=== PATIENT | male | born 1970 | race Caucasian/White ===

== ENCOUNTER 2020-11-12 15:57 | Inpatient (IN) | payer OTHER ==
[~2020-11-12] VITALS: Ht 180.3 cm; Wt 87.7 kg
--- NOTE | 2020-11-12 16:29 | NUR ---
Labs drawn, sent to lab Hep-Lock started
--- NOTE | 2020-11-12 16:29 | NUR ---
50-year-old male patient who presents to the ER with a chief complaint of abdominal pain x2 days The patient denies fever or chills, no recent travel
[2020-11-12] MEDS ORDERED: KETOROLAC TROMETHAMINE 15 MG/ML VIAL ONE (16:45)
[2020-11-12] MEDS ORDERED: ONDANSETRON HCL/PF 4 MG/2 ML VIAL ONE (16:45)
[2020-11-12 16:50] LABS: BASOPHILS % (AUTO) 0.1 % (0.0-2.0); EOSINOPHILS % (AUTO) 0.3 % (0.0-6.0); HEMATOCRIT 46 % (39-51); HEMOGLOBIN 15.6 g/dL (13.5-17.5); LYMPHOCYTES % (AUTO) 6.5 % (20.0-44.0); MEAN CORPUSCULAR HGB CONC 34 g/dl (31.0-36.0); MEAN CORPUSCULAR VOLUME 84 fL (80-96); MONOCYTES # (AUTO) 1.2 /CMM (0.1-1.30); MONOCYTES % (AUTO) 7.6 % (2.0-12.0); NEUTROPHILS % (AUTO) 85.5 % (43.0-81.0); PLATELET COUNT (AUTO) 261 /CMM (150-450); WHITE BLOOD COUNT (AUTO) 15.2 K/uL (4.3-11.0)
--- NOTE | 2020-11-12 16:54 | NUR ---
FLUIDS AND ANTI EMETICS GIVEN ORDERED
[2020-11-12] MEDS ORDERED: IV NS 0.9% 1,000 ML BAG IV ONE ×2 (17:00→18:00)
[2020-11-12] MEDS ORDERED: ONDANSETRON HCL/PF 4 MG/2 ML VIAL IVP ONE (17:00)
[2020-11-12] MEDS ORDERED: KETOROLAC TROMETHAMINE INJ 30 MG/ML VIAL IV ONE (17:00)
[2020-11-12 17:01] LABS: ALBUMIN 4.1 g/dL (3.4-5.0); BILIRUBIN,DIRECT 0.1 mg/dL (0.0-0.2); BILIRUBIN,TOTAL 0.6 mg/dL (0.2-1.0); CALCIUM, SERUM 9.2 mg/dL (8.5-10.1); TOTAL PROTEIN, SERUM 7.8 g/dL (6.4-8.2)
[2020-11-12] MEDS ORDERED: PIPERACILLIN /TAZOBACTAM 3.375 G in IV D5W 50 ML IV ONE (18:00)
--- NOTE | 2020-11-12 18:03 | NUR ---
CALLED OFFICE OF DR EDMONDS WOMEN SPECIALIST PAGED
[2020-11-12] MEDS ORDERED: ALBU18HF2 IH (18:19)
[2020-11-12 18:42] LABS: BILIRUBIN,URINE Negative (NEGATIVE); COLOR,URINE YELLOW (YELLOW); LEUKOCYTE ESTERASE ,URINE Negative (NEGATIVE); NITRITE, URINE Negative (NEGATIVE); PROTEIN,URINE 100 mg/dl (NEGATIVE); UGLUCOSE Negative (NEGATIVE); UROBILINOGEN,URINE 0.2 EU/dL (0.2)
[2020-11-12 18:49] LABS: PH,URINE >8.5 (5.0-8.0)
[2020-11-12 19:06] LABS: BACTERIA,URINE Rare /HPF (None Seen); RBC,URINE NONE SEEN /HPF (0-2); SQUAMOUS EPITHELIAL CELL,UR Few /HPF (None Seen); WBC,URINE NONE SEEN /HPF (0-3)
--- NOTE | 2020-11-12 19:10 | NUR ---
CALLED [facility], PAGED THAD DESHPANDE
--- NOTE | 2020-11-12 19:30 | NUR ---
THAD PAYROLL REPRESENTATIVE SPEAKING WITH CHERISE RAYGOZA
--- NOTE | 2020-11-12 19:46 | NUR ---
CALLED - RUBY NOTIFIED OF ADMISSION [phone]
[2020-11-12] MEDS ORDERED: IV NS 0.9% 1,000 ML IV PRN (20:00)
[2020-11-12] MEDS ORDERED: ZOLPIDEM TARTRATE 5 MG TABLET PO PRN (20:00)
[2020-11-12] MEDS ORDERED: ACETAMINOPHEN 325 MG TABLET PO PRN (20:00)
[2020-11-12] MEDS ORDERED: MAGNESIUM HYDROXIDE 30 ML UDC PO PRN (20:00)
--- NOTE | 2020-11-12 22:01 | NUR ---
ATTEMPTED TO PAGE THAD REGARDING A PT. WILL CALL US BACK.
[2020-11-12] MEDS: PIPERACILLIN /TAZOBACTAM 3.375 G in IV D5W 100 ML IV SCH (23:09)
--- NOTE | 2020-11-12 23:15 | NUR ---
JEAN GRADY AT BEDSIDE SPEAKING TO PT REGARDING PLAN OF CARE. ORDERED PRN BREATHING TREATMENT.
[2020-11-12] MEDS ORDERED: IPRATROPIUM NEB FS 0.5 MG/2.5 ML AMPUL.NEB ONE (23:24)
[2020-11-12] MEDS ORDERED: ALBUTEROL FS 2.5 MG/3 ML VIAL.NEB ONE (23:24)
--- NOTE | 2020-11-12 23:24 | NUR ---
CALLED RT REGARDING BREATHING TREATMENT
[2020-11-12] MEDS: ALBUTEROL HALF STRENGTH 1.25 MG/3 ML VIAL.NEB NEB PRN (23:26)
[2020-11-12] MEDS: IPRATROPIUM NEB FS 0.5 MG/2.5 ML AMPUL.NEB NEB PRN (23:26)
--- NOTE | 2020-11-12 23:44 | NUR ---
M/S [id number]
--- NOTE | 2020-11-13 00:40 | NUR ---
REPORT GIVEN TO BRI RAI FOR ROSALINA
--- NOTE | 2020-11-13 01:00 | NUR ---
RN ADMITTING NOTES PATIENT RECEIVED FROM ER VIA [facility]. PATIENT A/O X 4, STABLE ON RA, ABLE TO AMBULATE. NO SIGNS OF ACUTE DISTRESS. COMPLAINTS OF RLQ ABDOMINAL PAIN . IV LOCATE ON R AC #18 RUNNING NS @ 75 ML/HR. VITALS TAKEN. SKIN ASSESSMENT DONE. BELONGINGS ACCOUNTED FOR. PATIENT ORIENTED TO ROOM AND STAFF. SAFETY PRECAUTIONS IN PLACE WITH BED IN LOWEST POSITION, CALL LIGHT WITHIN REACH, BREAKS ON, SIDE RAILS UP. PATIENT REMAINING NPO THROUGHOUT THE NIGHT. WAITING FOR GI AND SURGERY CONSULT.
[2020-11-13] MEDS: MORPHINE SULFATE INJ 2 MG/ML DISP.SYRIN IV PRN ×4 (01:32→09:28)
[2020-11-13] MEDS: ONDANSETRON HCL/PF 4 MG/2 ML VIAL IVP PRN ×3 (01:35→22:11)
[2020-11-13 01:59] VITALS: BP 118/66
[2020-11-13] MEDS ORDERED: PIPERACILLIN /TAZOBACTAM 3.375 G VIAL IV ONE (05:03)
[2020-11-13] MEDS: PIPERACILLIN /TAZOBACTAM 3.375 G in IV D5W 100 ML IV SCH ×3 (05:14→20:14)
--- NOTE | 2020-11-13 05:52 | NUR ---
ONLY ZOSYN 3.375 IN 50 ML OF D5W AVAILABLE ON FLOOR, SPOKE WITH PHARMACY IF ABLE TO ADMINISTER IN REPLACE OF THE ORDERED. CHANGED RATE TO 12.5 ML/HR.
[2020-11-13 06:32] LABS: BASOPHILS % (AUTO) 0.3 % (0.0-2.0); EOSINOPHILS % (AUTO) 0.3 % (0.0-6.0); HEMATOCRIT 39 % (39-51); HEMOGLOBIN 12.9 g/dL (13.5-17.5); LYMPHOCYTES # (AUTO) 1.3 /CMM (0.8-4.8); LYMPHOCYTES % (AUTO) 10.2 % (20.0-44.0); MEAN CORPUSCULAR HGB CONC 33 g/dl (31.0-36.0); MEAN CORPUSCULAR VOLUME 84 fL (80-96); MONOCYTES # (AUTO) 0.8 /CMM (0.1-1.30); MONOCYTES % (AUTO) 6.3 % (2.0-12.0); NEUTROPHILS # (AUTO) 10.7 /CMM (1.8-8.9); NEUTROPHILS % (AUTO) 82.9 % (43.0-81.0); PLATELET COUNT (AUTO) 203 /CMM (150-450); RED BLOOD CELL COUNT(AUTO) 4.65 MIL/uL (4.5-6.0); WHITE BLOOD COUNT (AUTO) 12.8 K/uL (4.3-11.0)
--- NOTE | 2020-11-13 06:48 | NUR ---
RN CLOSING NOTES PATIENT IN BED RESTING, A/O X 4. STABLE ON RA WITH BREATHING EVEN AND UNLABORED, NO SOB NOTED. NO SIGNS OF ACUTE DISTRESS. SOME COMPLAINTS OF PAIN AND DISCOMFORT. IV LOCATED ON R AC #18 RUNNING NS @ 75 ML/HR. PATIENT REMAINED NPO THROUGHOUT THE NIGHT AWAITING POSSIBLE SURGERY. SAFETY PRECAUTIONS IN PLACE WITH BED IN LOWEST POSITION, CALL LIGHT WITHIN REACH, BREAKS ON, SIDE RAILS UP. ALL NEEDS ATTENDED TO. WILL ENDORSE TO ONCOMING SHIFT ABOUT ROSALINA.
[2020-11-13 07:08] LABS: CALCIUM, SERUM 8.3 mg/dL (8.5-10.1); CREATININE 0.9 mg/dL (0.6-1.3); MAGNESIUM 2.3 mg/dL (1.8-2.4); PHOSPHORUS 3.1 mg/dL (2.5-4.9); POTASSIUM 4.1 mmol/L (3.5-5.1)
--- NOTE | 2020-11-13 07:30 | NUR ---
MS/RN OPENING NOTE Received patient resting in bed, A&O x 4. No complaints of pain and discomfort at this time. Breathing even and non-labored on RA. No cardiac distress noted. IV access noted on RAC #18g, patent and intact, and flushing well. Bed locked to its lowest position, side rails x 2 up, call light in hand. Will continue with current medical management.
[2020-11-13 08:00] VITALS: BP 127/73
--- NOTE | 2020-11-13 08:00 | NUR ---
MS/RN NOTE Patient expresses the need to see and talk to MD regarding plan of care. He stated that he was informed yesterday that he was going to get an emergency operation but was cancelled and never got followed up by surgeon or MD. Notified Dr. Rivera, states to contact Dr. Knowles regarding plan. Spoke with Dr. Knowles, states "I just want to monitor how he is on antibiotics first, because surgical intervention may require colostomy procedure as well. Since his WBC is trending down, we'll do antibiotic treatments first, but keep him NPO." Order carried out, notified patient and Dr. Rivera of orders.
[2020-11-13] MEDS ORDERED: MORPHINE SULFATE INJ 2 MG/ML DISP.SYRIN IV PRN (10:30)
[2020-11-13] MEDS: IPRATROPIUM NEB FS 0.5 MG/2.5 ML AMPUL.NEB NEB PRN (11:27)
[2020-11-13] MEDS: ALBUTEROL HALF STRENGTH 1.25 MG/3 ML VIAL.NEB NEB PRN (11:27)
[2020-11-13] MEDS ORDERED: LIDOCAINE HCL/PF 1% 30 ML SDV ONE (11:43)
[2020-11-13] MEDS ORDERED: LIDOCAINE 0.5%-EPI 1:200,000 50 ML VIAL ONE (11:52)
[2020-11-13] MEDS ORDERED: BUPIVACAINE 0.5 % PF 150 MG/30 ML VIAL ONE (11:59)
--- NOTE | 2020-11-13 12:00 | NUR ---
MS/RN NOTE Called pharmacy to bring in zosyn abx before procedure so that OR can hang it. Pharmacy states they are in the process of making it.
--- NOTE | 2020-11-13 12:21 | NUR ---
MS/RN NOTE Patient picked up by OR nurses for procedure.
--- NOTE | 2020-11-13 12:30 | NUR ---
MS/RN NOTE Followed up on pharmacy again regarding patient's zosyn abx and offered to go down to pick it up, but pharmacist said they'll finish it soon and will deliver bertha. Addendum: 11/13/20 at 1338 by KIMMIE MAYA RN Notified OR.
[2020-11-13] MEDS ORDERED: MIDAZOLAM HCL 2 MG/2ML VIAL ONE (12:43)
[2020-11-13] MEDS ORDERED: HYDROMORPHONE INJ 2 MG/ML DISP.SYRIN ONE (12:43)
[2020-11-13] MEDS ORDERED: ROCURONIUM BROMIDE 50 MG/5 ML ONE ×2 (12:44→13:38)
[2020-11-13] MEDS ORDERED: SUCCINYLCHOLINE CHLORIDE 20 MG/ML VIAL ONE (12:45)
[2020-11-13] MEDS ORDERED: EPINEPHRINE (1:1000) 1 MG/ML AMPUL ONE (13:14)
[2020-11-13] MEDS ORDERED: LIDOCAINE MPF 1%-EPI 1:200,000 30 ML VIAL IJ ONE (13:22)
--- NOTE | 2020-11-13 13:38 | NUR ---
MS/RN NOTE Gave OR patient's IV abx zosyn to administer to patient.
[2020-11-13] MEDS ORDERED: BACITRACIN OPHTH OINT 3.5 GM TUBE ONE (15:02)
[2020-11-13] MEDS: HYDROMORPHONE 1 MG/1 ML DISP.SYRIN IV PRN ×2 (18:09→22:06)
[2020-11-13] MEDS ORDERED: IV LR 1000 ML 1,000 ML IV PRN (18:30)
[2020-11-13 20:00] VITALS: BP 142/58
[2020-11-13] MEDS ORDERED: GABAPENTIN 300 MG CAPSULE PO SCH (21:00)
[2020-11-13] MEDS ORDERED: ACETAMINOPHEN 325 MG TABLET PO SCH (21:00)
[2020-11-13] MEDS ORDERED: IBUPROFEN 400 MG TABLET PO SCH (21:00)
[2020-11-13] MEDS: IBUPROFEN 400 MG TABLET PO SCH (21:09)
[2020-11-13] MEDS: ACETAMINOPHEN 325 MG TABLET PO SCH (21:18)
[2020-11-13] MEDS: GABAPENTIN 300 MG CAPSULE PO SCH (21:18)
--- NOTE | 2020-11-13 22:18 | NUR ---
RN NOTES COMPLAINED OF ABDOMINAL PAIN AND NAUSEA, DILAUDI 1 MG IV GIVEN S ORDERED, AND ZOFRAN 4 MG IV GIVEN FOR NAUSEA
--- NOTE | 2020-11-13 23:27 | NUR ---
MS/RN NOTE Patient resting in bed, A&O x 4. No complaints of pain and discomfort at this time. Breathing even and non-labored on RA. No cardiac distress noted. IV access noted on RAC #18g, patent and intact, and flushing well. Colostomy bag in place. Abdominal incision dressing remains clean dry and intact. Fall precautions maintained. Endorsed to Sandi RAI for ROSALINA
[2020-11-14] MEDS ORDERED: MENTHOL/CETYLPYRD (CEPACOL) 1 LOZ LOZENGE PO PRN (00:30)
[2020-11-14] MEDS: PIPERACILLIN /TAZOBACTAM 3.375 G in IV D5W 100 ML IV SCH ×3 (04:38→20:06)
[2020-11-14 06:34] LABS: BASOPHILS # (AUTO) 0.1 /CMM (0.0-0.2); BASOPHILS % (AUTO) 0.3 % (0.0-2.0); HEMATOCRIT 38 % (39-51); HEMOGLOBIN 12.7 g/dL (13.5-17.5); LYMPHOCYTES # (AUTO) 0.8 /CMM (0.8-4.8); LYMPHOCYTES % (AUTO) 5.3 % (20.0-44.0); MEAN CORPUSCULAR HGB CONC 34 g/dl (31.0-36.0); MEAN CORPUSCULAR VOLUME 84 fL (80-96); MONOCYTES # (AUTO) 0.8 /CMM (0.1-1.30); MONOCYTES % (AUTO) 4.8 % (2.0-12.0); NEUTROPHILS # (AUTO) 14.5 /CMM (1.8-8.9); NEUTROPHILS % (AUTO) 89.6 % (43.0-81.0); PLATELET COUNT (AUTO) 187 /CMM (150-450); RED BLOOD CELL COUNT(AUTO) 4.51 MIL/uL (4.5-6.0); WHITE BLOOD COUNT (AUTO) 16.2 K/uL (4.3-11.0)
[2020-11-14 07:03] LABS: ALBUMIN 2.6 g/dL (3.4-5.0); BILIRUBIN,TOTAL 0.4 mg/dL (0.2-1.0); CALCIUM, SERUM 8.7 mg/dL (8.5-10.1); MAGNESIUM 2.4 mg/dL (1.8-2.4); PHOSPHORUS 2.9 mg/dL (2.5-4.9); POTASSIUM 4.1 mmol/L (3.5-5.1); TOTAL PROTEIN, SERUM 6.1 g/dL (6.4-8.2)
[2020-11-14] MEDS: ACETAMINOPHEN 325 MG TABLET PO SCH ×3 (07:18→21:11)
[2020-11-14] MEDS: GABAPENTIN 300 MG CAPSULE PO SCH ×3 (07:18→21:11)
[2020-11-14] MEDS: IBUPROFEN 400 MG TABLET PO SCH ×3 (07:19→21:11)
[2020-11-14] MEDS: PANTOPRAZOLE 40 MG TABLET.DR PO SCH (07:19)
--- NOTE | 2020-11-14 07:30 | NUR ---
MS/RN OPENING NOTES RECEIVED PT IN BED. A/O X4. AFEBRILE. IN NO APPARENT DISTRESS. BREATHING EVEN AND UNLABORED. ON ROOM AIR, TOLERATING WELL. R ANTECUBITAL #18 G, L FOREARM #18 G, INTACT, LR RUNNING AT 150 ML/HR. S/P EX LAP BOWEL RESECTION AND COLOSTOMY. FLATUS PRESENT. WITH VACA CATH, DRAINING WELL. SAFETY MEASURES APPLIED. BED IN LOWEST POSITION. CALL LIGHT WITHIN REACH. WILL CONTINUE TO MONITOR.
[2020-11-14 08:00] VITALS: BP 109/76
[2020-11-14] MEDS: HYDROMORPHONE 1 MG/1 ML DISP.SYRIN IV PRN ×3 (08:18→18:27)
--- NOTE | 2020-11-14 08:18 | NUR ---
PATIENT IN PAIN. DUE TO S/P SURGERY. PAIN 06/24. DILAUDID PRN GIVEN.
[2020-11-14] MEDS: IV LR 1000 ML 1,000 ML IV PRN (14:02)
[2020-11-14 16:00] VITALS: BP 125/77
--- NOTE | 2020-11-14 18:35 | NUR ---
MS/RN CLOSING NOTES PATIENT IN BED. AFEBRILE. IN SO MUCH PAIN. RATES PAIN 20/10. DILAUDID PRN GIVEN. NO SOB NOTED. WITH R ANTECUBITAL #18 G. L FA # 18 G. INTACT, LR RUNNING @ 100L/HR. ON VACA CATH, DRAINING WELL. COLOSTOMY, CLEAN AND DRY. SAFETY MEASURES APPLIED. BED IN LOWEST POSITION, LOCKED. SIDE RAILS UP X2. LIGHTS OFF. CALL LIGHT WITHIN REACH. WILL ENDORSE TO CODING MANAGER FOR ROSALINA.
--- NOTE | 2020-11-14 19:05 | NUR ---
RN MS OPENING NOTES RECEIVED PATIENT IN BED AWAKE ALERT AND ORIENTED X4, RESPIRATIONS EVEN AND UNLABORED WITH EQUAL RISE AND FALL OF CHEST, AT THIS TIME APPEARS COMFORTABLE NO FACIAL GRIMACING PRESENT, WHEN ASKED STATES HE FEELS BLOATED, LEFT LOWER QUAD COLOSTOMY BAG INTACT, VACA CATHETER INTACT AND DRAINING URINE YELLOW, IV SITE TO RIGHT AC #18G AND LEFT FA #18G INTACT AND PATENT, IVF RUNNING ORDERED, NO REDNESS, NO INFILTRATION. ORIENTED TO STAFF AND CALL LIGHT AND KEPT WITHIN REACH.
[2020-11-14 20:00] VITALS: BP 136/73
--- NOTE | 2020-11-14 20:48 | NUR ---
RN MS NOTES PATIENT EXPRESS HE FEELS LIKE HE HASNT PASSED GAS AND FEELS BLOATED AND JUST WANTS TO PASS GAS AND HAS PAIN TO ABDOMEN AREA, HOSPITALIST JEAN MADE AWARE AND WILL ORDER SIMETHICONE. OFFERED PAIN MEDICATION PRN TO PT HE REFUSED AT THIS TIME. WILL CONTINUE TO MONITOR, VS ASSESSED WNL. 136/73,71,18,97.9,98% RA.
[2020-11-14] MEDS: SIMETHICONE 80 MG TAB.CHEW PO SCH (21:11)
--- NOTE | 2020-11-14 21:27 | NUR ---
RN MS NOTES NORIS PENA AWARE PT IS COMPLAINING OF PAIN AND FEELS LIKE ITS THE WORST PAIN STATES 20/10 . NORIS PENA AWARE COLOSTOMY BAG HAS MINIMAL BLOOD, VS WNL. PER JEAN GIVE SIMETHICONE AND SHE WILL COME ASSESS THE PT, PT MADE AWARE PAIN MEDICATION OFFERED, PT REFUSED.
[2020-11-14] MEDS ORDERED: GABAPENTIN 300 MG CAPSULE PO SCH (22:00)
--- NOTE | 2020-11-14 23:16 | NUR ---
RN MS NOTES SEEN AND ASSESSED BY JEAN HOSPITALIST, WITH NEW ORDER FOR LABS AND CT OF THE ABDOMEN AND PELVIS WO, LAB AND RADIOLOGY CALLED.
--- NOTE | 2020-11-14 23:28 | NUR ---
RN MS NOTES PATIENT LEFT WITH RADIOLOGY STAFF IN STABLE CONDITION.
[2020-11-14 23:34] LABS: BASOPHILS % (AUTO) 0.2 % (0.0-2.0); EOSINOPHILS % (AUTO) 0.7 % (0.0-6.0); HEMATOCRIT 44 % (39-51); HEMOGLOBIN 14.5 g/dL (13.5-17.5); LYMPHOCYTES # (AUTO) 0.9 /CMM (0.8-4.8); MEAN CORPUSCULAR HGB CONC 33 g/dl (31.0-36.0); MEAN CORPUSCULAR VOLUME 84 fL (80-96); MONOCYTES # (AUTO) 0.7 /CMM (0.1-1.30); MONOCYTES % (AUTO) 4.9 % (2.0-12.0); NEUTROPHILS # (AUTO) 12.8 /CMM (1.8-8.9); NEUTROPHILS % (AUTO) 88.2 % (43.0-81.0); PLATELET COUNT (AUTO) 235 /CMM (150-450); RED BLOOD CELL COUNT(AUTO) 5.24 MIL/uL (4.5-6.0); WHITE BLOOD COUNT (AUTO) 14.5 K/uL (4.3-11.0)
[2020-11-14 23:40] LABS: CALCIUM, SERUM 8.7 mg/dL (8.5-10.1); CREATININE 1.1 mg/dL (0.6-1.3); POTASSIUM 4.2 mmol/L (3.5-5.1)
--- NOTE | 2020-11-14 23:40 | NUR ---
RN MS NOTE PT C/O NAUSEA ZOFRAN PRN OFFERED AND GIVEN WILL CONTINUE TO MONITOR.
--- NOTE | 2020-11-14 23:40 | NUR ---
RN MS NOTES PATIENT BACK ON UNIT FROM CT IN STABLE CONDITION.
[2020-11-14] MEDS: ONDANSETRON HCL/PF 4 MG/2 ML VIAL IVP PRN (23:43)
[2020-11-14 23:46] LABS: ALBUMIN 2.9 g/dL (3.4-5.0); BILIRUBIN,TOTAL 0.4 mg/dL (0.2-1.0); MAGNESIUM 2.2 mg/dL (1.8-2.4); PHOSPHORUS 2.7 mg/dL (2.5-4.9); TOTAL PROTEIN, SERUM 6.9 g/dL (6.4-8.2)
--- NOTE | 2020-11-15 00:32 | NUR ---
RN MS NOTES RECEIVED CALL FROM DR NIXON RECEIVED ORDERS TO INSERT NGT LOW INTERMITTENT SUCTION, NPO ICE CHIPS OKAY, DILAUDID 2MG ONCE.
[2020-11-15] MEDS ORDERED: HYDROMORPHONE INJ 2 MG/ML DISP.SYRIN IV ONE (01:00)
[2020-11-15] MEDS ORDERED: MEPERIDINE HCL/PF 50 MG/ML DISP.SYRIN IM PRN (01:00)
--- NOTE | 2020-11-15 01:09 | NUR ---
RN MS NOTES CHEST XRAY PLACED FOR NGT INSERTION PLACEMENT.
--- NOTE | 2020-11-15 01:10 | NUR ---
RN MS NOTES ER CALLED AND GROUP ACCOUNT DIRECTOR CALLED, DEMEROL IS NOT AVAILABLE NOT IN FACILITY WILL CALL DR NIXON TO NOTIFY HIM.
--- NOTE | 2020-11-15 01:30 | NUR ---
rn ms notes demerol discontinued not available in facility dr umanzor aware. per dr dial pat can have 1mg dilaudid now, and in 2-3 hours can have dilaudid 3mg q3 hrs. offered dialaudid 1mg to pt he states he will wait at this time. dr dial made aware of ngt 900cc output brown in color.
[2020-11-15] MEDS: PIPERACILLIN /TAZOBACTAM 3.375 G in IV D5W 100 ML IV SCH ×3 (04:36→20:26)
[2020-11-15] MEDS: ACETAMINOPHEN 325 MG TABLET PO SCH ×3 (04:37→22:00)
[2020-11-15] MEDS: GABAPENTIN 300 MG CAPSULE PO SCH ×3 (04:37→22:00)
[2020-11-15] MEDS: IBUPROFEN 400 MG TABLET PO SCH ×3 (04:37→22:00)
[2020-11-15] MEDS: HYDROMORPHONE 1 MG/1 ML DISP.SYRIN IV PRN (06:09)
[2020-11-15 07:08] LABS: BASOPHILS # (AUTO) 0.1 /CMM (0.0-0.2); BASOPHILS % (AUTO) 0.5 % (0.0-2.0); EOSINOPHILS % (AUTO) 0.9 % (0.0-6.0); HEMATOCRIT 41 % (39-51); HEMOGLOBIN 13.7 g/dL (13.5-17.5); LYMPHOCYTES # (AUTO) 1.1 /CMM (0.8-4.8); LYMPHOCYTES % (AUTO) 8.8 % (20.0-44.0); MEAN CORPUSCULAR HGB CONC 34 g/dl (31.0-36.0); MEAN CORPUSCULAR VOLUME 83 fL (80-96); MONOCYTES # (AUTO) 0.6 /CMM (0.1-1.30); NEUTROPHILS # (AUTO) 10.9 /CMM (1.8-8.9); NEUTROPHILS % (AUTO) 84.8 % (43.0-81.0); PLATELET COUNT (AUTO) 232 /CMM (150-450); RED BLOOD CELL COUNT(AUTO) 4.87 MIL/uL (4.5-6.0); WHITE BLOOD COUNT (AUTO) 12.9 K/uL (4.3-11.0)
--- NOTE | 2020-11-15 07:10 | NUR ---
RN MS OPENING NOTES PATIENT IN BED AWAKE ALERT AND ORIENTED X4, RESPIRATIONS EVEN AND UNLABORED WITH EQUAL RISE AND FALL OF CHEST, AT THIS TIME APPEARS COMFORTABLE NO FACIAL GRIMACING PRESENT STATES HE FEELS MUCH BETTER NGT TO LEFT NARE AT 65 CM, TOTAL OUTPUT WAS 1OOOML BROWN/YELLOW IN COLOR, LEFT LOWER QUAD COLOSTOMY BAG INTACT HAVE NOT NOTICED GAS IN BAG YET, STOMA LOOKS RED IN COLOR, VACA CATHETER INTACT AND DRAINING URINE YELLOW 1600 OUT,PT REMAINS NPO, IV SITE TO RIGHT AC #18G AND LEFT FA #18G INTACT AND PATENT, IVF RUNNING ORDERED, NO REDNESS, NO INFILTRATION. ORIENTED TO STAFF AND CALL LIGHT AND KEPT WITHIN REACH. ALL NEEDS WERE MET, NOTICED PT WAS ABLE TO SLEEP A FEW HOURS AFTER DILAUDID ADMINISTRATION AND NGT SUCTION AT LOW INTERMITTENT. LINENS CHANGED WILL CONTINUE TO MONITOR AND ENDORSE TO NEXT SHIFT, VS REMAINED STABLE THROUGHOUT THE SHIFT. Addendum: 11/15/20 at 0803 by SID HENRIQUEZ RN CLARIFICATION RN CLOSING NOTES
--- NOTE | 2020-11-15 07:10 | NUR ---
clarification urine output is 800
[2020-11-15 07:23] LABS: CALCIUM, SERUM 8.4 mg/dL (8.5-10.1); CREATININE 0.9 mg/dL (0.6-1.3); MAGNESIUM 2.2 mg/dL (1.8-2.4); PHOSPHORUS 3.4 mg/dL (2.5-4.9); POTASSIUM 3.9 mmol/L (3.5-5.1)
--- NOTE | 2020-11-15 07:26 | NUR ---
MS RN OPENING NOTES RECEIVED PATIENT RESTING IN BED AWAKE, A/OX4. ON RA BREATHING EVEN AND UNLABORED WITH NO S/S OF ACUTE RESPIRATORY DISTRESS NOTED. NO C/O PAIN, C/O ABD DISCOMFORT AND DISTENTION IV TO RAC#18G AND LT FA#18. BOTH PATENT AND INTACT AND FLUSHING WELL. IV TO LFA INFUSING LR @100 ML/HR RUNNING. BED AT LOWEST POSITION AND LOCKED WITH SIDE RAILS UP x2 AND CALL LIGHT WITH IN REACH. ALL SAFETY MEASURES IN PLACE, WILL CONTINUE TO MONITOR PATIENT THROUGH SHIFT.
[2020-11-15 08:00] VITALS: BP 125/80
[2020-11-15] MEDS: SIMETHICONE 80 MG TAB.CHEW PO SCH ×4 (08:22→21:00)
[2020-11-15] MEDS: PANTOPRAZOLE 40 MG TABLET.DR PO SCH (08:22)
--- NOTE | 2020-11-15 10:30 | NUR ---
DR HUSSAIN HALL ALSO GAVE INSTRUCTIONS THAT PT MAY HAVE CHOCOLATE CANDY TO SUCK EVEN IF PT IN ON NPO,AND ADMINISTER DILAUDID 3 MG IV NOW FOR PAIN MGT.
[2020-11-15] MEDS: HYDROMORPHONE INJ 2 MG/ML DISP.SYRIN IV PRN ×2 (11:22→16:55)
--- NOTE | 2020-11-15 14:30 | NUR ---
DR NIXON CALLED AND NOTIFIED OF THE KUB RESULT WITH NO NEW ORDER.
[2020-11-15 16:00] VITALS: BP 123/66
[2020-11-15] MEDS: IV LR 1000 ML 1,000 ML IV PRN (16:50)
--- NOTE | 2020-11-15 19:45 | NUR ---
MS RN OPENING NOTES RECEIVED PATIENT IN BED ALERT AND ORIENTED X 4. VERBALLY RESPONSIVE AND ABLE TO FOLLOW DIRECTIONS. BREATHING REGULAR AND UNLABORED ON ROOM AIR. LEFT FOREARM G18/RIGHT AC G18 IV LINES INTACT AND PATENT, INFUSING WELL. RIGHT NARE NGT PATENT, DRAINING DARK GREEN OUTPUT WITH MODERATE OUTPUT ON SUCTION CANISTER. COMPLAINED OF 3/10 ABDOMINAL PAIN, NON-PHARMACOLOGICAL INTERVENTIONS PROVIDED. BED LOW AND LOCKED ON SEMI FOWLERS POSITION. CALL LIGHT IN REACH. WILL CONTINUE TO MONITOR.
--- NOTE | 2020-11-15 19:46 | NUR ---
PT RESTING IN BED WITH ONGOING NGT CONNECTED TO SUCTION WITH 250 ML OUTPUT.WITH ONGOING IVF OF LR AT 100 ML/HR INFUSING WELL.PT SIGNED ALL THE CONSENTS FOR EXPLOR LAP AND RELEASE/RELIEVE OF SMALL BOWEL OBSTRUCTION,POSSIBLE RESECTION AND ANASTOMOSIS FOR TOMORROW AT 12NN BY DR NIXON. CALL LIGHT PLACED WITHIN REACH.
[2020-11-15 20:00] VITALS: BP_SYST 140; BP_DIAS 77; BP_DIAS 78
--- NOTE | 2020-11-15 23:00 | NUR ---
MS RN NOTES CALLED FOR KUB ORDERS TOMORROW AT 9AM, ORDER NOTED AND CARRIED OUT. PATIENT AWARE.
[2020-11-16] VITALS (9 sets, daily range): BP systolic 112–143; BP diastolic 66–88
--- NOTE | 2020-11-16 | NUR ---
MS RN NOTES ADVISED ON NOTHING BY MOUTH.
[2020-11-16] MEDS: HYDROMORPHONE INJ 2 MG/ML DISP.SYRIN IV PRN ×4 (00:23→21:04)
[2020-11-16] MEDS: PIPERACILLIN /TAZOBACTAM 3.375 G in IV D5W 100 ML IV SCH ×3 (04:30→21:05)
[2020-11-16] MEDS: GABAPENTIN 300 MG CAPSULE PO SCH ×3 (05:12→21:49)
[2020-11-16] MEDS: IBUPROFEN 400 MG TABLET PO SCH ×3 (05:12→21:49)
[2020-11-16] MEDS: ACETAMINOPHEN 325 MG TABLET PO SCH ×3 (05:12→21:49)
[2020-11-16] MEDS: PANTOPRAZOLE 40 MG TABLET.DR PO SCH (06:43)
--- NOTE | 2020-11-16 06:45 | NUR ---
MS RN CLOSING NOTES PATIENT IN BED ALERT AND ORIENTED X 3 FORGETFUL AND ANXIOUS SOMETIMES. AFEBRILE WITH NO S/S OF DISTRESS OBSERVED. LEFT FOREARM G18/RIGHT AC G18 IV LINES INTACT AND PATENT, INFUSING WELL. RIGHT NARE NGT PATENT, DRAINING DARK GREEN WITH 35cc OUTPUT. DENIES PAIN/DISCOMFORT AT THIS TIME. BED LOW AND LOCKED ON SEMI FOWLERS POSITION. CALL LIGHT IN REACH. WILL ENDORSE TO MORNING SHIFT FOR ROSALINA.
--- NOTE | 2020-11-16 07:37 | NUR ---
MS RN OPENING NOTES PT IN BED AWAKE, A/O X3 ABLE TO MAKE NEEDS KNOWN. ON ROOM AIR; TOLERATING WELL WITH NO SOB NOTED; NO ACUTE RESPIRATORY DISTRESS NOTED. NO C/O CARDIAC DISTRESS VOICED AT THIS TIME. IV RAC #18 PATENT AND INTACT. IV ON LFA #18, PATENT AND INTACT. NGT INTACT AND PATENT; TOLERATING WELL. VACA CATHETER INTACT AND PATENT; CLEAR YELLOW URINE DRAINING. COLOSTOMY ON LLQ WITH BLOODY DRAINAGE; KEPT C/D/I. NO C/O PAIN AT THIS TIME. NPO DIET MAINTAINED. SAFETY MEASURES IN PLACE: BED IN LOWEST LOCKED POSITION WITH SR UP X2, BED ALARM ON AND CALL LIGHT W/IN EASY REACH OF PT. WILL CONTINUE TO MONITOR.
--- NOTE | 2020-11-16 08:42 | NUR ---
RN notes Pt c/o of lower abdominal pain 10/10 scale, prn Dilaudid 1.5mg/0.75ml IVP administered at 0839. Will continue to monitor and reassess pt. .
[2020-11-16] MEDS: SIMETHICONE 80 MG TAB.CHEW PO SCH ×4 (08:46→21:00)
[2020-11-16 09:07] LABS: BASOPHILS % (AUTO) 0.3 % (0.0-2.0); EOSINOPHILS % (AUTO) 4.3 % (0.0-6.0); HEMATOCRIT 41 % (39-51); HEMOGLOBIN 13.8 g/dL (13.5-17.5); LYMPHOCYTES # (AUTO) 0.9 /CMM (0.8-4.8); LYMPHOCYTES % (AUTO) 11.5 % (20.0-44.0); MEAN CORPUSCULAR HGB CONC 34 g/dl (31.0-36.0); MEAN CORPUSCULAR VOLUME 84 fL (80-96); MONOCYTES # (AUTO) 0.6 /CMM (0.1-1.30); MONOCYTES % (AUTO) 6.9 % (2.0-12.0); NEUTROPHILS # (AUTO) 6.4 /CMM (1.8-8.9); PLATELET COUNT (AUTO) 298 /CMM (150-450); RED BLOOD CELL COUNT(AUTO) 4.83 MIL/uL (4.5-6.0); WHITE BLOOD COUNT (AUTO) 8.3 K/uL (4.3-11.0)
[2020-11-16 09:41] LABS: ALBUMIN 2.6 g/dL (3.4-5.0); BILIRUBIN,TOTAL 0.4 mg/dL (0.2-1.0); CALCIUM, SERUM 8.6 mg/dL (8.5-10.1); CREATININE 0.9 mg/dL (0.6-1.3); POTASSIUM 3.7 mmol/L (3.5-5.1); TOTAL PROTEIN, SERUM 6.5 g/dL (6.4-8.2)
[2020-11-16] MEDS ORDERED: BUPIVACAINE 0.5 % PF 150 MG/30 ML VIAL ONE (11:33)
[2020-11-16] MEDS ORDERED: LIDOCAINE MPF 1%-EPI 1:200,000 30 ML VIAL IJ ONE (11:33)
[2020-11-16] MEDS ORDERED: HYDROMORPHONE INJ 2 MG/ML DISP.SYRIN ONE ×2 (11:45→15:52)
[2020-11-16] MEDS ORDERED: MIDAZOLAM HCL 2 MG/2ML VIAL ONE (11:46)
[2020-11-16] MEDS ORDERED: ROCURONIUM BROMIDE 50 MG/5 ML ONE ×2 (11:46→13:13)
--- NOTE | 2020-11-16 11:50 | NUR ---
SURGERY RN NOTES SCANNED ZOSYN FOR 1300 TO TAKE THE BAG TO SURGERY. WILL BE ADMINISTRATED IN OR, SEE ANESTHESIOLOGIST NOTES FOR ADMINISTRATION.
--- NOTE | 2020-11-16 12:08 | NUR ---
RN NOTES PT PICKED-UP VIA HIS BED BY Jesika BONILLA AND TRANSPORTER STAFF FOR SURGERY.
[2020-11-16] MEDS ORDERED: CELLULOSE,OXIDIZED 1 EA PACK MC ONE (13:46)
[2020-11-16] MEDS ORDERED: BACITRACIN OPHTH OINT 3.5 GM TUBE ONE (14:38)
[2020-11-16] MEDS ORDERED: BACITRACIN ZINC OINT (15 GM) 15 GM TUBE TP ONE (14:39)
[2020-11-16] MEDS ORDERED: HYDROMORPHONE 1 MG/1 ML DISP.SYRIN ONE ×2 (15:26→15:53)
[2020-11-16] MEDS ORDERED: FENTANYL PF 100MCG/2ML AMPUL ONE (15:43)
--- NOTE | 2020-11-16 16:37 | NUR ---
RN NOTES PT RETURNED FROM SURGERY S/P EXPLORATORY LAPAROTOMY AND RELEASE / RELIEVE OF SMALL BOWEL OBSTRUCTION, POSSIBLE RESECTION AND ANASTOMOSIS. SPECIMEN COLLECTED AND SENT TO LABORATORY. PT IS AWAKE ,A/O X3. VERBALLY RESPONSIVE, ON 02 VIA SIMPLE MASK AT 3LPM, SP02 95-96% AT THIS TIME, NO C/O SOB. PT WITH INCISION SITE ON MID ABDOMINAL AREA WITH DRESSING C/D/I. PT ON INTERMITTENT LOW SUCTION WITH GREENISH COLORED DRAINAGE NOTED. V/S CHECKED, STABLE AND RECORDED. ALL S/P OPERATION ORDERS RECEIVED AND WILL CARRY OUT. WILL CONTINUE TO MONITOR PT. .
[2020-11-16] MEDS: IV LR 1000 ML 1,000 ML IV PRN (18:10)
--- NOTE | 2020-11-16 18:21 | NUR ---
RN notes Pt c/o of lower abdominal pain 10/10 scale, prn Dilaudid 1.5mg/0.75ml IVP administered at 1819. Will continue to monitor and reassess pt.
--- NOTE | 2020-11-16 19:36 | NUR ---
MS CECELIA OPENING NOTES PT IN BED AWAKE, A/O X4 ABLE TO MAKE NEEDS KNOWN. ON ROOM AIR; TOLERATING WELL WITH NO SOB NOTED; NO ACUTE RESPIRATORY DISTRESS NOTED. NO C/O CARDIAC DISTRESS VOICED AT THIS TIME. IV RAC #18 PATENT AND INTACT. IV ON LFA #18, PATENT AND INTACT, LR @ 200ML/HR INFUSING. NGT INTACT AND PATENT; TOLERATING WELL WITH GREEN COLORED DRAINAGE. VACA CATHETER INTACT AND PATENT; CLEAR YELLOW URINE DRAINING. COLOSTOMY ON LLQ WITH BLOODY DRAINAGE; KEPT C/D/I. NO C/O PAIN AT THIS TIME. NPO DIET EXCEPT ICE-CHIPS MAINTAINED. SAFETY MEASURES IN PLACE: BED IN LOWEST LOCKED POSITION WITH SR UP X2, BED ALARM ON AND CALL LIGHT W/IN EASY REACH OF PT. WILL ENDORSE PLAN OF CARE TO ONCOMING NURSE. Addendum: 11/16/20 at 1938 by AGAPITO RÍOS RN MS RAI CLOSING NOTES
--- NOTE | 2020-11-16 19:40 | NUR ---
MSRN FULLY AWAKE, S/P EX LAP TODAY BY DR. NIXON. MID ABDOMINAL DRESSING D/I. VACA TO GRAVITY OUTPUT MONITORED. NGT TO LOW INT SUCTION GREENISH DRAINAGE NOTED IN [place]. ICECHIPS ALLOWED, NO N/V. CONCRENS BROUGHT UP REGARDING POSTOP PAIN, MEDICATION REGIMEN AND PAIN MGT REVIEWED WITH PATIENT, APPEARS TO UNDERSTAND. PRESENT IVF INFUSING WELL. V/S STABLE AFEBRILE. KEPT COMFORTABLE. CLOSELY WATCHED.
[2020-11-16] MEDS: ONDANSETRON HCL/PF 4 MG/2 ML VIAL IVP PRN (21:03)
--- NOTE | 2020-11-16 21:10 | NUR ---
MSRN VERBALIZING POST OP PAIN 3MG OF DILUADED IVP ADMINISTERED ORDERED. ENCOURAGED TO USE INCENTIVE SPIROMETRY, DEEP BREATHE AND COUGH. PROVIDED IMPROVISED SMALL PILLOW TO SUPPORT HIS STOMACH WHILE COUGHING EXERCISES., GOT NAUSEATED FROM DILAUDED ZOFRAN 4MG IVP ADMINISTERED.
[2020-11-16] MEDS: PANTOPRAZOLE 40 MG VIAL IV SCH (22:41)
[2020-11-17] MEDS: IV LR 1000 ML 1,000 ML IV PRN ×2 (00:29→05:45)
--- NOTE | 2020-11-17 00:30 | NUR ---
MSRN DILAUDED 3 MG IVP ADMINISTERED FOR POST OP PAIN SCALE OF 8 TO 9. ENCOURAGE INCENTIVE SPIROMETRY USE AND COUGH/DEEP BREATHING EXERCISES. STATED WILL TRY TO GET OOB EARLY TODAY.
[2020-11-17] MEDS: HYDROMORPHONE INJ 2 MG/ML DISP.SYRIN IV PRN ×6 (00:36→21:27)
--- NOTE | 2020-11-17 05:11 | NUR ---
MSRN ABLE TO SIT UP AT THE EDGE OF BED AND STAND FOR FEW MINUTES, STATES FELT LIGHT HEADED AND NAUSEATED. NO EMESIS, DETERMINED TO INCREASE HIS ACTIVITY AND STATED WILL TRY NOT TO HAVE PAIN MED. BURPED FEW TIMES. BACK TO BED AFTER. SCDs ENCOURAGED USE FOR GOOD CIRCULATION, CONNECTED TO LIS DRAINED MODERATE AMOUNT GREENISH DRAINAGE. BEDREST FOR NOW. CONTINUED MONITORING. CLOSELY WATCHED.
[2020-11-17] MEDS: PIPERACILLIN /TAZOBACTAM 3.375 G in IV D5W 100 ML IV SCH ×3 (05:29→21:04)
[2020-11-17 06:54] LABS: BASOPHILS % (AUTO) 0.3 % (0.0-2.0); EOSINOPHILS % (AUTO) 1.6 % (0.0-6.0); HEMATOCRIT 39 % (39-51); HEMOGLOBIN 13.1 g/dL (13.5-17.5); LYMPHOCYTES % (AUTO) 9.9 % (20.0-44.0); MEAN CORPUSCULAR HGB CONC 34 g/dl (31.0-36.0); MEAN CORPUSCULAR VOLUME 84 fL (80-96); MONOCYTES % (AUTO) 9.4 % (2.0-12.0); NEUTROPHILS # (AUTO) 8.2 /CMM (1.8-8.9); NEUTROPHILS % (AUTO) 78.8 % (43.0-81.0); PLATELET COUNT (AUTO) 316 /CMM (150-450); RED BLOOD CELL COUNT(AUTO) 4.63 MIL/uL (4.5-6.0); WHITE BLOOD COUNT (AUTO) 10.5 K/uL (4.3-11.0)
--- NOTE | 2020-11-17 07:00 | NUR ---
MSRN ASLEEP OF THIS TIME. 400 OUT FROM NGT. ENDORSED TO INCOMING RN
[2020-11-17 07:37] LABS: ALBUMIN 2.6 g/dL (3.4-5.0); BILIRUBIN,TOTAL 0.5 mg/dL (0.2-1.0); CALCIUM, SERUM 8.4 mg/dL (8.5-10.1); CREATININE 0.9 mg/dL (0.6-1.3); MAGNESIUM 2.2 mg/dL (1.8-2.4); POTASSIUM 3.7 mmol/L (3.5-5.1); TOTAL PROTEIN, SERUM 6.2 g/dL (6.4-8.2)
[2020-11-17 08:00] VITALS: BP 134/81
[2020-11-17] MEDS: PANTOPRAZOLE 40 MG VIAL IV SCH ×2 (09:27→21:03)
[2020-11-17] MEDS: ONDANSETRON HCL/PF 4 MG/2 ML VIAL IVP PRN ×3 (09:39→21:33)
--- NOTE | 2020-11-17 09:39 | NUR ---
MS/RN NOTE THE PATIENT COMPLAINS OF NAUSEA. ZOFRAN IV PUSH GIVEN PER ORDER. WILL CONTINUE TO MONITOR.
--- NOTE | 2020-11-17 09:41 | NUR ---
MS/RN NOTE PULLED OUT FROM [employer] PROTONIX 40 MG IV PUSH, OPENED THE COVER BUT DID NOT GIVE IT BECAUSE UPON SCANNING NOTED THAT THE MEDICATION IS NOT DUE AT THIS TIME. SO DID NOT RETURN THE MEDICATION TO [employer], INSTEAD I DISCARDED IT.
--- NOTE | 2020-11-17 10:10 | NUR ---
MS/RN NOTE PATIENT VERBALIZED RELIEVE FROM NAUSEA.
--- NOTE | 2020-11-17 12:37 | NUR ---
MS/RN NOTE RECEIVED A CALL FROM DR NIXON AND RECEIVED AN ORDER TO DISCONTINUE LACTATED RINGER 200ML/HR AND START NEW ORDER OF D5 LACTATED RINGER AT 200 ML/HR. THE ORDERS ARE READ BACK, VERIFIED. NOTED AND CARRIED OUT.
[2020-11-17] MEDS: IV D5 LR 1,000 ML IV PRN ×2 (13:48→21:03)
--- NOTE | 2020-11-17 14:13 | NUR ---
MS/RN NOTE RECEIVED A CALL FROM DR NIXON AND HE ORDERED CLEAR LIQUID DIET THAT INCLUDES ONLY POPSICLE AND JELLO STARTING 11/17/20 LUNCH. WAS REMINDED THAT THE PATIENT`S NG TUBE IS SUCTIONING GREEN COLOR OUTPUT, PATIENT`S ABDOMEN IS STILL DISTENDED, HE DID NOT PASS GAS OR BM. DR NIXON STILL ORDERED THE DIET ORDER. THE ORDER IS READ BACK, VERIFIED. NOTED AND CARRIED OUT.
[2020-11-17 16:00] VITALS: BP 132/70
[2020-11-17] MEDS ORDERED: KETOROLAC TROMETHAMINE INJ 30 MG/ML VIAL IM PRN ×2 (19:00)
--- NOTE | 2020-11-17 19:05 | NUR ---
RN NOTE DR NIXON IS MADE AWARE THAT THE PATIENT REFUSED TO GET UP FROM BED, URINE OUTPUT 500ML AND BLADDER SCAN DONE WHICH SHOWED NO RETENTION, COLOSTOMY BAG WITH SCANT AMOUNT OF BLOOD DURING THE 12 SHIFT. RECEIVED A NEW ORDER FROM DR NIXON TO DISCONTINUE D5 LR 200ML/HR AND START NEW ORDER OF D5 LR 250ML/HR. THE ORDERS NOTED AND CARRIED OUT. THE PATIENT IS MADE AWARE.
--- NOTE | 2020-11-17 19:20 | NUR ---
RN opening notes Received Pt from morning nurse. Pt is resting in bed comfortably. Pt is alert and orientedX4. Respiration is normal in room air. No SOB. No S/S of distress noted. IV site at LFA# 18 is clean, intact and infusing well D5 LR @ 200 ml/hr. Colostomy at LL quadrant is intact and patent with 0 output scant blood. Garcia cath is intact and draining yellow urine. Safety precautions is maintained. Bed at low position, brakes locked, side rails upX2 and call light is within reach. Will continue to monitor.
[2020-11-17 20:00] VITALS: BP 127/53
[2020-11-17] MEDS ORDERED: KETOROLAC TROMETHAMINE INJ 30 MG/ML VIAL IV PRN ×2 (20:00)
--- NOTE | 2020-11-17 20:10 | NUR ---
MS/RN NOTE ADMINISTERED TORADOL 30 MG IV PUSH AND TORADOL [address] NIXON REQUESTED THE PATIENT TO GET TOTAL OF 60 MG TORADOL (30 IV PUSH AND 30 IM) X1. RESERVATIONS SALES AGENT IS ENDORSED TO CONTINUE MONITORING THE PATIENT.
[2020-11-18] MEDS: HYDROMORPHONE INJ 2 MG/ML DISP.SYRIN IV PRN ×5 (00:42→21:05)
--- NOTE | 2020-11-18 00:42 | NUR ---
RN notes Pt's complaining of pain on R and L abdomen 10/10 on pain scale and requesting dilaudid. Administered dilaudid 3.5 mg/ 1.75 ml/ IV push /Q 3 hr/prn as ordered for pain per Pt's requested. BP 126/74, pulse 75. safety precautions is maintained. Will continue to monitor.
[2020-11-18] MEDS: IV D5 LR 1,000 ML IV PRN ×2 (02:58→17:47)
[2020-11-18] MEDS: PIPERACILLIN /TAZOBACTAM 3.375 G in IV D5W 100 ML IV SCH ×3 (04:42→21:08)
[2020-11-18 06:42] LABS: BASOPHILS # (AUTO) 0.1 /CMM (0.0-0.2); BASOPHILS % (AUTO) 1.1 % (0.0-2.0); EOSINOPHILS % (AUTO) 5.6 % (0.0-6.0); HEMATOCRIT 34 % (39-51); HEMOGLOBIN 11.6 g/dL (13.5-17.5); LYMPHOCYTES % (AUTO) 14.3 % (20.0-44.0); MEAN CORPUSCULAR HGB CONC 34 g/dl (31.0-36.0); MEAN CORPUSCULAR VOLUME 84 fL (80-96); MONOCYTES # (AUTO) 0.7 /CMM (0.1-1.30); NEUTROPHILS # (AUTO) 5.1 /CMM (1.8-8.9); PLATELET COUNT (AUTO) 284 /CMM (150-450); RED BLOOD CELL COUNT(AUTO) 4.02 MIL/uL (4.5-6.0); WHITE BLOOD COUNT (AUTO) 7.3 K/uL (4.3-11.0)
[2020-11-18 06:59] LABS: CREATININE 0.9 mg/dL (0.6-1.3); MAGNESIUM 2.2 mg/dL (1.8-2.4); PHOSPHORUS 3.4 mg/dL (2.5-4.9); POTASSIUM 3.3 mmol/L (3.5-5.1)
--- NOTE | 2020-11-18 07:00 | NUR ---
RN closing notes Pt is resting in bed comfortably. Pt is alert and orientedX4. Respiration is normal. No SOB. No S/S of distress noted. VS is stable. Routine meds were given as ordered. Kept Pt clean, dry and comfortable. All needs met and attended. Will endorse to morning nurse for ROSALINA. Addendum: 11/18/20 at 0846 by RAGINI HOLMAN RN Safety precautions is maintained. Bed at low position, brakes locked, side rails upX2 and call light is within reach.
--- NOTE | 2020-11-18 07:33 | NUR ---
MS OPEN NOTES PATIENT IS A/0 X 4 WITH NO SIGNS OF DISTRESS IN ROOM AIR. IV L FA #18G INTACT RUNNING D5LR AT 250 ML/HR. OSTOMY BAG LLQ INTACT. VACA CATH INTACT. NO COMPLAIN OF PAIN AT THIS MOMENT. SAFETY MEASURES ARE APPLIED, BED IN THE LOWEST AND LOCKED POSITION. SIDE RAILS UP X 2. CALL LIGHT WITHIN REACH WILL CONTINUE TO MONITOR.
[2020-11-18 08:00] VITALS: BP 119/72
[2020-11-18] MEDS: ONDANSETRON HCL/PF 4 MG/2 ML VIAL IVP PRN ×2 (09:07→21:07)
[2020-11-18] MEDS: POTASSIUM CL. PREMIX PERIPHER. 50 ML IV SCH ×2 (10:11→11:51)
[2020-11-18 16:00] VITALS: BP_SYST 110; BP_SYST 119; BP_DIAS 66
--- NOTE | 2020-11-18 16:35 | NUR ---
PATIENT COMPLAINED OF NEW RED SPOTS ON HIS ANDRÉS HANDS, INFORMED DR. ALEXANDER. NO NEW ORDERS YET. WILL CONTINUE TO MONITOR.
--- NOTE | 2020-11-18 20:03 | NUR ---
MS CLOSING NOTES PATIENT IS A/0 X 4 WITH NO SIGNS OF DISTRESS IN ROOM AIR. IV R FA #20G INTACT RUNNING D5LR AT 250 ML/HR. OSTOMY BAG LLQ INTACT. VACA CATH INTACT. NO COMPLAIN OF PAIN AT THIS MOMENT. PATIENT KEPT CLEAN AND DRY. ALL NEEDS, CARE, TREATMENT, AND MEDICATIONS WERE ADMINISTERED ANTICIPATED PER ORDER. SAFETY MEASURES ARE APPLIED, BED IS IN LOW POSITION SIDE RAILS UP X 2. CALL LIGHT WITHIN REACH WILL ENDORSE TO THE PATTERN CHECKER NURSE.
[2020-11-18] MEDS: PANTOPRAZOLE 40 MG VIAL IV SCH (21:31)
[2020-11-19] MEDS: HYDROMORPHONE 1 MG/1 ML DISP.SYRIN IV PRN (00:50)
[2020-11-19] MEDS: HYDROMORPHONE INJ 2 MG/ML DISP.SYRIN IV PRN ×3 (03:39→21:19)
[2020-11-19] MEDS: PIPERACILLIN /TAZOBACTAM 3.375 G in IV D5W 100 ML IV SCH ×3 (05:02→21:05)
[2020-11-19 07:13] LABS: BASOPHILS % (AUTO) 0.4 % (0.0-2.0); EOSINOPHILS % (AUTO) 4.6 % (0.0-6.0); HEMATOCRIT 36 % (39-51); HEMOGLOBIN 12.6 g/dL (13.5-17.5); LYMPHOCYTES % (AUTO) 10.9 % (20.0-44.0); MEAN CORPUSCULAR HGB CONC 35 g/dl (31.0-36.0); MEAN CORPUSCULAR VOLUME 82 fL (80-96); MONOCYTES # (AUTO) 0.7 /CMM (0.1-1.30); NEUTROPHILS # (AUTO) 6.7 /CMM (1.8-8.9); NEUTROPHILS % (AUTO) 76.1 % (43.0-81.0); PLATELET COUNT (AUTO) 360 /CMM (150-450); WHITE BLOOD COUNT (AUTO) 8.7 K/uL (4.3-11.0)
[2020-11-19 07:45] LABS: CALCIUM, SERUM 8.7 mg/dL (8.5-10.1); CREATININE 0.8 mg/dL (0.6-1.3); PHOSPHORUS 3.8 mg/dL (2.5-4.9); POTASSIUM 3.7 mmol/L (3.5-5.1)
[2020-11-19 08:00] VITALS: BP 106/75
[2020-11-19] MEDS: ONDANSETRON HCL/PF 4 MG/2 ML VIAL IVP PRN ×2 (08:29→21:19)
[2020-11-19] MEDS ORDERED: KETOROLAC TROMETHAMINE INJ 30 MG/ML VIAL IV ONE (10:00)
[2020-11-19] MEDS ORDERED: KETOROLAC TROMETHAMINE INJ 30 MG/ML VIAL IM ONE (10:53)
--- NOTE | 2020-11-19 13:00 | NUR ---
m/s sack cleaning hand: surgeon f/u seen and examined by dr. dial. dr. dial changed pt's colostomy bag and also teaching provided by md with return demonstration, pt verbalized understanding.
[2020-11-19] MEDS: KETOROLAC TROMETHAMINE INJ 30 MG/ML VIAL IV SCH ×2 (13:49→20:00)
[2020-11-19 16:00] VITALS: BP 128/75
--- NOTE | 2020-11-19 17:45 | NUR ---
m/s finance intern: notes pt awaken and started complaining that his suction is not working. teaching provided, but pt keeps arguing with staff. rn covering notified; also spoke to pt and pt did the same thing, pt keeps arguing, insisting the suction is not working. primary nurse and rn covering check all the lines and suction with no problem noted. informed pt that i will address the issue with dr. dial. pt appears to be hesitant and keeps arguing.
--- NOTE | 2020-11-19 18:30 | NUR ---
m/s geophysical prospecting surveyor: notes pt still has a lot of concerns and continue to argue with staff's teaching. conference call done with dr. dial and address pt's concerns. dr. dial spoke to pt and answered all his concerns. pt still argumentative despite md's teaching. stat kub ordered. order carried out and acknowledged.
--- NOTE | 2020-11-19 19:00 | NUR ---
m/s accounts executive: notes report given to baylee (rn) for continuity of care.
[2020-11-19 20:00] VITALS: BP 135/79
[2020-11-19] MEDS ORDERED: ALBUTEROL SULFATE 8 GM HFA.AER.AD IH PRN (20:00)
[2020-11-19] MEDS: IV D5 LR 1,000 ML IV PRN (20:19)
[2020-11-20] MEDS: HYDROMORPHONE INJ 2 MG/ML DISP.SYRIN IV PRN ×7 (00:14→21:01)
[2020-11-20] MEDS: PANTOPRAZOLE 40 MG VIAL IV SCH ×2 (00:14→21:01)
[2020-11-20] MEDS: ALBUTEROL HALF STRENGTH 1.25 MG/3 ML VIAL.NEB NEB PRN ×2 (00:33→20:16)
[2020-11-20] MEDS: IPRATROPIUM NEB FS 0.5 MG/2.5 ML AMPUL.NEB NEB PRN ×2 (00:33→20:16)
[2020-11-20] MEDS: KETOROLAC TROMETHAMINE INJ 30 MG/ML VIAL IV SCH ×4 (02:00→20:00)
--- NOTE | 2020-11-20 02:23 | NUR ---
MS/TELE/RN PATIENT TRYING TO PULL OUT TRACH AND GTUBE, OBTAINED ORDER FOR SOFT WRIST RESTRAINT. Addendum: 11/20/20 at 0225 by ALICIA METCALF RN PLS. DISREGARD ABOVE DOCUMENTATION, IT WAS ENTERED IN ERROR, IT BELONGS TO ANOTHER PATIENT.
--- NOTE | 2020-11-20 03:06 | NUR ---
MS/TELE/RN AT 1900, RECEIVED PATIENT IN BED AWAKE, ALERT, ORIENTED, LITTLE ANXIOUS, NO DISTRESS NOTED, NGT TO LOW INTERMITTENT SUCTION WITH GREENISH GASTRIC OUTPUT. RECEIVED A CALL FROM DR. NIXON WHO ASKED UPDATES ON PATIENT'S VITAL SIGNS, URINE OUTPUT, O2 SATURATION. UPADATES WERE GIVEN, RECEIVED ORDER FOR CXR STAT, AND TO DECREASE THE IVF TO 50 MLS PER HOUR. MD ALSO ASKED FOR TELEPHONE NUMBER OF THE HOSPITALIST ON CASE, CONTACT INFORMATION WAS GIVEN FOR AILIN TAYLOR DNP FILTER SCREEN CLEANER. YSABEL PARISI,,CAME, HE CHECKED CX RESULT, AND TALKED TO THE PATIENT.
[2020-11-20] MEDS: ONDANSETRON HCL/PF 4 MG/2 ML VIAL IVP PRN ×3 (04:21→17:42)
[2020-11-20] MEDS: PIPERACILLIN /TAZOBACTAM 3.375 G in IV D5W 100 ML IV SCH ×3 (06:35→21:01)
--- NOTE | 2020-11-20 06:45 | NUR ---
MS/TELE/RN PATIENT C/O PAIN, GAVE DILAUDID 2 MG IVP (PER PATIENT REQUEST) .
[2020-11-20 07:25] LABS: BASOPHILS % (AUTO) 0.4 % (0.0-2.0); HEMATOCRIT 38 % (39-51); HEMOGLOBIN 12.9 g/dL (13.5-17.5); LYMPHOCYTES % (AUTO) 10.4 % (20.0-44.0); MEAN CORPUSCULAR HGB CONC 34 g/dl (31.0-36.0); MEAN CORPUSCULAR VOLUME 82 fL (80-96); MONOCYTES # (AUTO) 0.6 /CMM (0.1-1.30); MONOCYTES % (AUTO) 6.4 % (2.0-12.0); NEUTROPHILS # (AUTO) 7.8 /CMM (1.8-8.9); NEUTROPHILS % (AUTO) 78.8 % (43.0-81.0); PLATELET COUNT (AUTO) 373 /CMM (150-450); RED BLOOD CELL COUNT(AUTO) 4.57 MIL/uL (4.5-6.0); WHITE BLOOD COUNT (AUTO) 9.8 K/uL (4.3-11.0)
--- NOTE | 2020-11-20 07:30 | NUR ---
RN MS NOTES PT IN BED, AWAKE, ALERT AND ORIENTED, NO COMPLAINT AT THIS TIME, BREATHING PATTERN NORMAL, NO BLEEDING OR DRAIN NOTED TO ABDOMINAL SURGICAL SITE, WITH NGT CONNECTED TO LOW INTERMITTENT SUCTION, CALL LIGHT WITHIN REACH.
[2020-11-20 07:55] LABS: CALCIUM, SERUM 8.8 mg/dL (8.5-10.1); CREATININE 0.8 mg/dL (0.6-1.3); MAGNESIUM 2.3 mg/dL (1.8-2.4); PHOSPHORUS 3.7 mg/dL (2.5-4.9); POTASSIUM 3.3 mmol/L (3.5-5.1)
[2020-11-20 08:00] VITALS: BP 130/76
[2020-11-20] MEDS: IV D5 LR 1,000 ML IV PRN (10:31)
[2020-11-20] MEDS: POTASSIUM CHLORIDE 20 MEQ POWDER PACKET PO SCH ×2 (11:00→11:41)
[2020-11-20] MEDS ORDERED: MAGNESIUM CITRATE 296 ML BOTTLE PO ONE (15:30)
[2020-11-20 16:00] VITALS: BP 138/69
--- NOTE | 2020-11-20 19:00 | NUR ---
RN MS NOTES PT IN BED, AWAKE, ALERT AND ORIENTED, PAIN MEDS GIVEN FOR PAIN MANAGEMENT ORDERED, SEEN BY DR. NIXON, PLAN OF CARE DISCUSSED WITH PT, VERBALIZED UNDERSTANDING, SEEN BY PHYSICAL THERAPIST TODAY, ALL NEEDS ATTENDED.
--- NOTE | 2020-11-20 19:35 | NUR ---
MS RN NOTES PATIENT IN BED, AWAKE, ALERT AND ORIENTED X 4. BREATHING EVEN AND UNLABORED ON ROOM AIR. SHOWS NO SIGNS OF ACUTE RESPIRATORY DISTRESS. INCISION SITE CLEAN DRY AND DRESSING INTACT. COLOSTOMY ARMSTRONG INTACT AND IN PLACE WITH PINK OSTOMY SITE. NGT INTACT WITH INTERMITTENT SUCTION. FC INTACT FLOWING YELLOW CLEAR URINE. IV ON LFA 20G RUNNING D5LR AT 50ML/HR. SHOWS NO SIGNS OF INFILTRATION. NO REDNESS. SAFETY PRECAUTIONS IN PLACE. BED IN LOWEST POSITION, LOCKED, AND CALL LIGHT KEPT WITHIN REACH. WILL CONTINUE TO MONITOR.
[2020-11-20 20:44] VITALS: BP 146/87
[2020-11-21] MEDS: HYDROMORPHONE INJ 2 MG/ML DISP.SYRIN IV PRN ×5 (01:37→21:20)
[2020-11-21] MEDS: ONDANSETRON HCL/PF 4 MG/2 ML VIAL IVP PRN ×3 (01:37→18:15)
[2020-11-21] MEDS: KETOROLAC TROMETHAMINE INJ 30 MG/ML VIAL IV SCH ×4 (01:50→20:00)
[2020-11-21] MEDS: IV D5 LR 1,000 ML IV PRN (04:04)
[2020-11-21] MEDS: PIPERACILLIN /TAZOBACTAM 3.375 G in IV D5W 100 ML IV SCH ×3 (04:04→21:17)
--- NOTE | 2020-11-21 06:32 | NUR ---
MS RN NOTES PATIENT IN BED, ASLEEP, ALERT AND ORIENTED X 4. BREATHING EVEN AND UNLABORED ON ROOM AIR. SHOWS NO SIGNS OF ACUTE RESPIRATORY DISTRESS. INCISION SITE CLEAN DRY AND DRESSING INTACT. COLOSTOMY BAG INTACT AND IN PLACE WITH PINK OSTOMY SITE. NO OUTPUT FOR COLOSTOMY. NGT INTACT WITH INTERMITTENT SUCTION 500ML OUTPUT. FC INTACT FLOWING YELLOW CLEAR URINE. IV ON LFA 20G RUNNING D5LR AT 50ML/HR. SHOWS NO SIGNS OF INFILTRATION. NO REDNESS.ALL DUE MEDICATIONS GIVEN. ALL NEEDS ATTENDED TO. PT WISHES TO BE TRANSFERRED TO ANOTHER HOSPITAL, HE STATES THAT HE IS NOT SATISFIED WITH THE LEVEL OF CARE, HE WILL CONTACT INSURANCE TO BE TRANSFERRED TO ANOTHER HOSPITAL. ALSO WANTS RECOVERY SPECIALIST OR MILK PICKUP DRIVER TO F/U ON BEING TRANSFERRED. SAFETY PRECAUTIONS IN PLACE. BED IN LOWEST POSITION, LOCKED, AND CALL LIGHT KEPT WITHIN REACH. WILL ENDORSE TO ONCOMING NURSE.
[2020-11-21 07:25] LABS: BASOPHILS % (AUTO) 0.4 % (0.0-2.0); EOSINOPHILS % (AUTO) 4.3 % (0.0-6.0); HEMATOCRIT 38 % (39-51); HEMOGLOBIN 12.8 g/dL (13.5-17.5); LYMPHOCYTES # (AUTO) 0.8 /CMM (0.8-4.8); LYMPHOCYTES % (AUTO) 8.7 % (20.0-44.0); MEAN CORPUSCULAR HGB CONC 34 g/dl (31.0-36.0); MEAN CORPUSCULAR VOLUME 83 fL (80-96); MONOCYTES # (AUTO) 0.7 /CMM (0.1-1.30); MONOCYTES % (AUTO) 7.7 % (2.0-12.0); NEUTROPHILS % (AUTO) 78.9 % (43.0-81.0); PLATELET COUNT (AUTO) 384 /CMM (150-450); RED BLOOD CELL COUNT(AUTO) 4.55 MIL/uL (4.5-6.0); WHITE BLOOD COUNT (AUTO) 8.9 K/uL (4.3-11.0)
[2020-11-21 07:46] LABS: ALBUMIN 2.5 g/dL (3.4-5.0); CREATININE 0.9 mg/dL (0.6-1.3); POTASSIUM 3.5 mmol/L (3.5-5.1); TOTAL PROTEIN, SERUM 6.3 g/dL (6.4-8.2)
[2020-11-21 08:00] VITALS: BP 128/76
--- NOTE | 2020-11-21 08:00 | NUR ---
MS/RN OPENING NOTE RECEIVED PATIENT FROM PATTERNMAKER ALL AROUND NURSE. PATIENT IS AWAKE IN BED, A/O X4. PATIENT IN NO APPARENT DISTRESS. SAFETY MEASURES IN PLACE, BED LOCKED AND IN LOWEST POSITION, CALL LIGHT WITHIN REACH. WILL CONTINUE TO MONITOR AND ENSURE SAFETY.
[2020-11-21 08:05] VITALS: BP 128/76
[2020-11-21] MEDS: MENTHOL/CETYLPYRD (CEPACOL) 1 LOZ LOZENGE PO PRN ×2 (14:52→18:16)
[2020-11-21 16:00] VITALS: BP 139/94
[2020-11-21 20:00] VITALS: BP 129/80
--- NOTE | 2020-11-21 20:11 | NUR ---
MS/RN CLOSING NOTE PATIENT IN BED, AWAKE, ALERT AND ORIENTED X 4. BREATHING EVEN AND UNLABORED ON ROOM AIR. SHOWS NO SIGNS OF ACUTE RESPIRATORY DISTRESS. INCISION SITE CLEAN DRY AND DRESSING INTACT. COLOSTOMY BAG INTACT AND IN PLACE WITH PINK OSTOMY SITE. NO OUTPUT FOR COLOSTOMY. NGT INTACT. FC INTACT FLOWING YELLOW CLEAR URINE. IV ON LFA 20G RUNNING D5LR AT 50ML/HR. SHOWS NO SIGNS OF INFILTRATION. NO REDNESS.ALL DUE MEDICATIONS GIVEN. ALL NEEDS ATTENDED TO. MAGNESIUM CITRATE WAS GIVEN AT 1130, 1430, AND 1730 WITH NO BOWEL MOVEMENT DURING THE SHIFT. SAFETY PRECAUTIONS IN PLACE. BED IN LOWEST POSITION, LOCKED, AND CALL LIGHT KEPT WITHIN REACH. WILL ENDORSE TO ONCOMING NURSE.
[2020-11-21] MEDS: ALBUTEROL HALF STRENGTH 1.25 MG/3 ML VIAL.NEB NEB PRN (20:33)
[2020-11-21] MEDS: IPRATROPIUM NEB FS 0.5 MG/2.5 ML AMPUL.NEB NEB PRN (20:33)
--- NOTE | 2020-11-21 21:10 | NUR ---
MS RN NOTES SPOKE TO PATIENT REGARDING REMOVING VACA CATHETER, INSISTED ON KEEPING CATHETER UNTIL HE HAS BOWEL MOVEMENT.
[2020-11-21] MEDS: diphenhydrAMINE HCL 50 MG CAPSULE PO PRN (21:20)
[2020-11-21] MEDS: PANTOPRAZOLE 40 MG VIAL IV SCH (21:20)
--- NOTE | 2020-11-21 22:14 | NUR ---
MS RN NOTES PATIENT IN BED, AWAKE, ALERT AND ORIENTED X 4. BREATHING EVEN AND UNLABORED ON ROOM AIR. SHOWS NO SIGNS OF ACUTE RESPIRATORY DISTRESS. INCISION SITE CLEAN DRY AND DRESSING INTACT. COLOSTOMY BAG INTACT AND IN PLACE WITH PINK OSTOMY SITE. NGT INTACT WITH INTERMITTENT SUCTION. FC INTACT FLOWING YELLOW CLEAR URINE. IV ON LFA 20G RUNNING D5LR AT 50ML/HR. SHOWS NO SIGNS OF INFILTRATION. NO REDNESS. SAFETY PRECAUTIONS IN PLACE. BED IN LOWEST POSITION, LOCKED, AND CALL LIGHT KEPT WITHIN REACH. WILL CONTINUE TO MONITOR.
[2020-11-21] MEDS ORDERED: Z GUARD REMEDY 2 OZ OINT TP PRN (22:30)
[2020-11-22] MEDS: ONDANSETRON HCL/PF 4 MG/2 ML VIAL IVP PRN ×4 (01:12→23:23)
[2020-11-22] MEDS: HYDROMORPHONE INJ 2 MG/ML DISP.SYRIN IV PRN ×7 (01:12→23:15)
[2020-11-22] MEDS: KETOROLAC TROMETHAMINE INJ 30 MG/ML VIAL IV SCH ×4 (01:13→20:00)
[2020-11-22] MEDS: MENTHOL/CETYLPYRD (CEPACOL) 1 LOZ LOZENGE PO PRN ×2 (03:05→05:37)
[2020-11-22] MEDS: PIPERACILLIN /TAZOBACTAM 3.375 G in IV D5W 100 ML IV SCH ×3 (04:23→20:19)
--- NOTE | 2020-11-22 06:49 | NUR ---
MS RN NOTES PATIENT IN BED, AWAKE, ALERT AND ORIENTED X 4. BREATHING EVEN AND UNLABORED ON ROOM AIR. SHOWS NO SIGNS OF ACUTE RESPIRATORY DISTRESS. INCISION SITE CLEAN DRY AND DRESSING INTACT. COLOSTOMY BAG INTACT AND IN PLACE WITH PINK OSTOMY SITE, NO BM AFTER COMPLETION OF MG CITRATE. NGT INTACT WITH INTERMITTENT SUCTION. FC INTACT FLOWING YELLOW TEA COLORED URINE WITH SEDIMENTS. IV ON LFA 20G RUNNING D5LR AT 50ML/HR.SHOWS NO SIGNS OF INFILTRATION. NO REDNESS. PT STATED TOLERATABLE PAIN WITH FLUSHING OF IV. HOWEVER DID NOT WANT TO NEW IV. ALL DUE MEDICATIONS GIVEN. ALL NEEDS ATTENDED TO. SAFETY PRECAUTIONS IN PLACE. BED IN LOWEST POSITION, LOCKED, AND CALL LIGHT KEPT WITHIN REACH. WILL ENDORSE TO ONCOMING NURSE.
--- NOTE | 2020-11-22 07:30 | NUR ---
MS RN NOTES PATIENT RECEIVED IN BED, ALERT AND ORIENTED X 4. ON ROOM AIR WITH NO SIGNS OF RESPIRATORY DISTRESS AT THIS TIME, WITH EVEN NON-LABORED BREATHING AND NO SOB NOTED. NG TUBE IN PLACE WITH 600mL OUTPUT AT THIS TIME. VACA CATHETER INTACT AND IN PLACE, WITH URINE OUTPUT FLOWING BY GRAVITY. COLOSTOMY BAG INTACT AND IN PLACE. IV ACCESS INTACT AT PATENT, CURRENTLY INFUSING D5 LR AT 50mL/hr. SAFETY PRECAUTIONS IMPLEMENTED WITH BED LOCKED, BILATERAL SIDE RAILS UP, BED LOWEST IN POSITION, AND CALL LIGHT WITHIN EASY REACH. WILL CONTINUE TO MONITOR.
[2020-11-22 08:00] VITALS: BP 136/85
[2020-11-22 08:00] LABS: BASOPHILS % (AUTO) 0.2 % (0.0-2.0); EOSINOPHILS % (AUTO) 2.4 % (0.0-6.0); HEMATOCRIT 44 % (39-51); HEMOGLOBIN 14.1 g/dL (13.5-17.5); LYMPHOCYTES # (AUTO) 0.8 /CMM (0.8-4.8); LYMPHOCYTES % (AUTO) 9.4 % (20.0-44.0); MEAN CORPUSCULAR HGB CONC 32 g/dl (31.0-36.0); MEAN CORPUSCULAR VOLUME 88 fL (80-96); MONOCYTES # (AUTO) 0.7 /CMM (0.1-1.30); MONOCYTES % (AUTO) 8.8 % (2.0-12.0); NEUTROPHILS # (AUTO) 6.6 /CMM (1.8-8.9); NEUTROPHILS % (AUTO) 79.2 % (43.0-81.0); PLATELET COUNT (AUTO) 312 /CMM (150-450); RED BLOOD CELL COUNT(AUTO) 4.94 MIL/uL (4.5-6.0); WHITE BLOOD COUNT (AUTO) 8.3 K/uL (4.3-11.0)
[2020-11-22 08:12] LABS: CALCIUM, SERUM 9.1 mg/dL (8.5-10.1); MAGNESIUM 2.8 mg/dL (1.8-2.4); PHOSPHORUS 4.2 mg/dL (2.5-4.9); POTASSIUM 3.6 mmol/L (3.5-5.1)
[2020-11-22 08:21] VITALS: BP 136/85
[2020-11-22] MEDS: ALBUTEROL HALF STRENGTH 1.25 MG/3 ML VIAL.NEB NEB PRN ×2 (10:08→23:54)
[2020-11-22] MEDS: IPRATROPIUM NEB FS 0.5 MG/2.5 ML AMPUL.NEB NEB PRN ×2 (10:08→23:54)
[2020-11-22] MEDS: LACTULOSE 10 G/15 ML UDC (PYXIS) PO SCH ×3 (11:51→23:30)
[2020-11-22] MEDS ORDERED: HYDROMORPHONE INJ 2 MG/ML DISP.SYRIN IV PRN (13:00)
[2020-11-22] MEDS ORDERED: ERYTHROMYCIN 500 MG in IV NS 0.9% 100 ML IV SCH (13:00)
[2020-11-22 16:00] VITALS: BP 145/79
[2020-11-22 16:23] VITALS: BP 145/79
[2020-11-22] MEDS: ERYTHROMYCIN ETHYLSUCCINATE 200 MG/5 ML SUSPENSION GT SCH (16:35)
--- NOTE | 2020-11-22 18:50 | NUR ---
MS RN NOTES PATIENT IN BED RESTING COMFORTABLY, ALERT AND ORIENTED X 4. ON ROOM AIR WITH NO SIGNS OF RESPIRATORY DISTRESS AT THIS TIME, WITH EVEN NON-LABORED BREATHING AND NO SOB NOTED. NG TUBE IN PLACE, OFF SUCTION DUE TO PATIENT ATTEMPTING TO EAT. VACA CATHETER INTACT AND IN PLACE, WITH URINE OUTPUT FLOWING BY GRAVITY. COLOSTOMY BAG INTACT AND IN PLACE WITH STOOL BEING PRESENT AT THE SITE OF STOMA < THAN 15 mL. IV ACCESS INTACT AT PATENT, CURRENTLY INFUSING D5 LR AT 50mL/hr. MET ALL OF PATIENT NEEDS. ABDOMEN DRESSING INTACT AND PATENT NO LEAKING PRESENT AT SITE. SAFETY PRECAUTIONS IMPLEMENTED WITH BED LOCKED, BILATERAL SIDE RAILS UP, BED LOWEST IN POSITION, AND CALL LIGHT WITHIN EASY REACH. WILL ENDORSE PLAN OF CARE TO UPCOMING RN.
--- NOTE | 2020-11-22 19:58 | NUR ---
MS RN NOTE PATIENT REFUSED TO GET TORADOL ORDERED X 3 & PREFERS TO TAKE DILAUDID INSTEAD.
[2020-11-22 20:00] VITALS: BP 124/80
--- NOTE | 2020-11-22 20:00 | NUR ---
MS RN NOTE: DILAUDID GIVEN PATIENT C/O LOWER ABDOMINAL PAIN 07/25, REFUSED TO TAKE TORADOL AT ALL SCHEDULED & PREFERRED TO TAKE DILAUDID ONLY FOR PAIN. PRN DILAUDID 2 MG IV ADMINISTERED ORDERED. WILL CONTINUE TO MONITOR FOR ANY CHANGES.
--- NOTE | 2020-11-22 22:00 | NUR ---
MS RN NOTE: DR. NIXON CALLED CALLED & ORDERED TO DC NGT NOW TONIGHT, GIVEN PYRIDIUM 200 MG ONCE AT 0800 TOMORROW IN AM, THEN DISCONTINUE VACA CATH 2 HOURS GIVING PYRIDIUM. CBC, BMP, MG & PHOS IN AM. PER MD, GIVE ERYTHROMYCIN ETHYLSUCCINATE DOSE ONCE IN AM SCHEDULED THEN DISCONTINUE. HOLD LACTULOSE UNTIL FURTHER ORDER SINCE PATIENT IS HAVING LIQUID BOWEL MOVEMENTS & HAS COLOSTOMY BAG. CHANGE DIET TO SOFT DIET TOLERATED. CHANGE IVF D5LR TO 100 ML/HR. ALL ORDERS NOTED & CARRIED OUT. WILL CONTINUE TO MONITOR THE PATIENT.
--- NOTE | 2020-11-22 22:14 | NUR ---
MS RN NOTE DR. NIXON ORDERED TO REMOVE NGT AT THIS TIME BUT PATIENT REFUSED TO TAKE OUT THE NGT AT THIS TIME & STATED," IF YOU TAKE IT OUT NOW, WHATEVER I HAVE EATEN, IT MIGHT GO TO MY LUNGS WHILE I AM ASLEEP, I NEED YOU TO TAKE IT OUT IN THE MORNING." CHARGE NURSE MADE AWARE.
[2020-11-22 22:30] VITALS: BP 120/61
[2020-11-22] MEDS: PANTOPRAZOLE 40 MG VIAL IV SCH (22:35)
[2020-11-22] MEDS: IV D5 LR 1,000 ML IV PRN (23:14)
--- NOTE | 2020-11-22 23:16 | NUR ---
MS RN NOTE: DILAUDID GIVEN PATIENT C/O LOWER ABDOMINAL PAIN 07/25, PATIENT REQUESTED TO GET DILAUDID. PRN DILAUDID 2 MG IV ADMINISTERED ORDERED. WILL CONTINUE TO MONITOR FOR ANY CHANGES.
--- NOTE | 2020-11-22 23:23 | NUR ---
MS RN NOTE: ZOFRAN GIVEN PATIENT C/O NAUSEA & REQUESTED TO TAKE ANTINAUSEA MEDICINE. PRN ZOFRAN 4MG ADMINISTERED ORDERED.
--- NOTE | 2020-11-22 23:31 | NUR ---
MS RN NOTE: HELD LACTULOSE PER DR. NIXON, HOLD LACTULOSE IF PATIENT IS HAVING BM, PATIENT IS NOTED WITH LIQUID BM IN COLOSTOMY BAG FULL. INFORMED DR. NIXON & HELD LACTULOSE UNTIL FURTHER ORDER.
--- NOTE | 2020-11-22 23:51 | NUR ---
MS RN NOTE PATIENT REQUESTED TO GET BREATHING TREATMENT, INFORMED RT & TREATMENT WILL BE GIVEN.
[2020-11-23] MEDS ORDERED: MENTHOL/CETYLPYRD (CEPACOL) 1 LOZ LOZENGE ONE (01:20)
[2020-11-23] MEDS: MENTHOL/CETYLPYRD (CEPACOL) 1 LOZ LOZENGE PO PRN (01:23)
--- NOTE | 2020-11-23 01:24 | NUR ---
MS RN NOTE PATIENT REQUESTED TO TAKE CEPACOL SORE THROAT LOZENGE, PRN CEPACOL LOZENGE GIVEN. WILL CONTINUE TO MONITOR.
[2020-11-23] MEDS: KETOROLAC TROMETHAMINE INJ 30 MG/ML VIAL IV SCH ×2 (02:00→08:00)
--- NOTE | 2020-11-23 02:18 | NUR ---
MS RN NOTE: PATIENT REFUSED TORADOL PATIENT REFUSED TO GET TORADOL ORDERED X 3, WILL CONTINUE TO MONITOR.
[2020-11-23] MEDS: HYDROMORPHONE INJ 2 MG/ML DISP.SYRIN IV PRN ×7 (02:46→23:35)
--- NOTE | 2020-11-23 02:47 | NUR ---
MS RN NOTE: DILAUDID GIVEN PATIENT C/O ABDOMINAL PAIN 06/24 & PREFERRED TO TAKE DILAUDID ONLY FOR PAIN. PRN DILAUDID 2 MG IV ADMINISTERED ORDERED. WILL CONTINUE TO MONITOR FOR ANY CHANGES.
[2020-11-23] MEDS: PIPERACILLIN /TAZOBACTAM 3.375 G in IV D5W 100 ML IV SCH ×3 (05:16→21:42)
[2020-11-23] MEDS: LACTULOSE 10 G/15 ML UDC (PYXIS) PO SCH ×4 (05:30→23:44)
--- NOTE | 2020-11-23 05:59 | NUR ---
MS RN NOTE: DILAUDID GIVEN PATIENT C/O ABDOMINAL PAIN 06/24 & REQUESTED TO TAKE DILAUDID FOR PAIN. PRN DILAUDID 2 MG IV ADMINISTERED ORDERED. WILL CONTINUE TO MONITOR FOR ANY CHANGES.
[2020-11-23] MEDS: ONDANSETRON HCL/PF 4 MG/2 ML VIAL IVP PRN ×4 (06:08→22:14)
--- NOTE | 2020-11-23 06:08 | NUR ---
MS RN NOTE: ZOFRAN GIVEN PATIENT C/O NAUSEA & REQUESTED TO TAKE ANTINAUSEA MEDICINE. PRN ZOFRAN 4MG ADMINISTERED ORDERED. WILL CONTINUE TO MONITOR.
--- NOTE | 2020-11-23 06:29 | NUR ---
MS RN NOTE: NGT REMOVED PATIENT AGREED TO REMOVE NGT AT THIS TIME. CHARGE NURSE MADE AWARE SINCE PATIENT WAS GETTING VERY CONCERNED, PROVIDED INSTRUCTIONS TO THE PATIENT & CHARGE NURSE REMOVED PATIENT'S NGT, PATIENT TOLERATED WELL. WILL CONTINUE TO MONITOR FOR ANY CHANGES.
[2020-11-23] MEDS: IPRATROPIUM NEB FS 0.5 MG/2.5 ML AMPUL.NEB NEB PRN (07:45)
[2020-11-23] MEDS: ALBUTEROL HALF STRENGTH 1.25 MG/3 ML VIAL.NEB NEB PRN (07:46)
--- NOTE | 2020-11-23 07:49 | NUR ---
MS RN NOTE PATIENT IS IN BED RESTING. PATIENT IS IN NO ACUTE DISTRESS. NO SOB NOTED. HOB ELEVATED. PATIENT IS ON ROOM AIR. SAFETY PRECAUTIONS ARE IN PLACE. BED IN THE LOWEST POSITION WITH SIDE RAILS UP. CALL LIGHT WITHIN REACH. WILL CONTINUE TO MONITOR THROUGH OUT THE SHIFT.
[2020-11-23 08:00] VITALS: BP 115/63
[2020-11-23] MEDS ORDERED: PHENAZOPYRIDINE HCL 200 MG TABLET PO ONE (08:00)
[2020-11-23] MEDS: ERYTHROMYCIN ETHYLSUCCINATE 200 MG/5 ML SUSPENSION GT SCH (08:22)
[2020-11-23 08:31] LABS: BASOPHILS % (AUTO) 0.4 % (0.0-2.0); EOSINOPHILS % (AUTO) 1.3 % (0.0-6.0); HEMATOCRIT 41 % (39-51); HEMOGLOBIN 13.7 g/dL (13.5-17.5); LYMPHOCYTES # (AUTO) 0.6 /CMM (0.8-4.8); LYMPHOCYTES % (AUTO) 5.1 % (20.0-44.0); MEAN CORPUSCULAR HGB CONC 34 g/dl (31.0-36.0); MEAN CORPUSCULAR VOLUME 84 fL (80-96); MONOCYTES # (AUTO) 0.7 /CMM (0.1-1.30); MONOCYTES % (AUTO) 6.1 % (2.0-12.0); NEUTROPHILS # (AUTO) 9.6 /CMM (1.8-8.9); NEUTROPHILS % (AUTO) 87.1 % (43.0-81.0); PLATELET COUNT (AUTO) 413 /CMM (150-450); RED BLOOD CELL COUNT(AUTO) 4.85 MIL/uL (4.5-6.0)
--- NOTE | 2020-11-23 08:36 | NUR ---
MS NOTE PATIENT REFUSED SCHEDULED TORADOL MEDICATION. EDUCATED RISK VS BENEFITS.
[2020-11-23 10:19] LABS: CREATININE 1.1 mg/dL (0.6-1.3); MAGNESIUM 2.5 mg/dL (1.8-2.4); PHOSPHORUS 3.5 mg/dL (2.5-4.9); POTASSIUM 3.4 mmol/L (3.5-5.1)
--- NOTE | 2020-11-23 11:00 | NUR ---
MS NOTE PATIENT REFUSED TO HAVE VACA REMOVED. PER MD ORDER WAS TO REMOVE VACA AFTER PYRIDIUM GIVEN. EDUCATED RISK VS BENEFITS. PER PATIENT WANTS TO TRY LATER.
--- NOTE | 2020-11-23 11:50 | NUR ---
MS NOTE PER DR. NIXON HOLD LACTULOSE IF PATIENT HAS BOWEL MOVEMENT. BM NOTED.
--- NOTE | 2020-11-23 14:40 | NUR ---
MS NOTE PER PATIENT REQUEST CHANGED PATIENTS OSTOMY BAG.
[2020-11-23] MEDS: HYDROCODONE/APAP 10/325MG TABLET PO PRN ×2 (14:50→19:49)
--- NOTE | 2020-11-23 15:30 | NUR ---
MS NOTE PATIENT REFUSED TO HAVE VACA REMOVED. PER MD ORDER WAS TO REMOVE VACA AFTER PYRIDIUM GIVEN. EDUCATED RISK VS BENEFITS. PER PATIENT WANTS TO POST PONE REMOVAL OF VACA.
[2020-11-23 16:00] VITALS: BP 103/54
--- NOTE | 2020-11-23 16:37 | NUR ---
MS NOTE PER DR. NIXON HOLD LACTULOSE IF PATIENT HAS BOWEL MOVEMENT. BM NOTED IN THE OSTOMY.
[2020-11-23] MEDS ORDERED: POTASSIUM CHLORIDE 20 MEQ TAB.PRT.SR PO SCH (17:00)
--- NOTE | 2020-11-23 17:42 | NUR ---
MS RN NOTE DC PATIENTS VACA CATHETER. PER DR. NIXON ORDER. PATIENT TOLERATED PROCEDURE WELL.
--- NOTE | 2020-11-23 19:39 | NUR ---
MS RN CLOSING NOTE PATIENT IS IN RESTING IN BED. NO SIGNS OF DISTRESS NOTED. PATIENT IS ON ROOM AIR. NO SOB NOTED. HOB ELEVATED. SAFETY PRECAUTIONS ARE IN PLACE. BED IN THE LOWEST POSITION WITH SIDE RAILS UP. CALL LIGHT WITHIN REACH. ENDORSE PATIENT TO THE PAIN MEDICINE PHYSICIAN NURSE FOR CONTINUOUS MONITORING.
--- NOTE | 2020-11-23 19:40 | NUR ---
MS RN OPENING NOTES PATIENT IN BED AAOX4; ABLE TO MAKE NEEDS KNOWN. ON ROOM AIR; TOLERATING WELL WITH NO SOB. ABDOMINAL SURGICAL SITE DRESSING KEPT C/D/I. VOIDED X1 100ML VIA URINAL WITH CLEAR YELLOW OUTPUT. COLOSTOMY SITE ON LLQ; SITE KEPT CLEAN AND DRY; BAG INTACT WITH NO OUTPUT. IV #20 ON JEY; PATENT AND INTACT; D5LR @ 100ML/HR. PATIENT COMPLAINS OF ABDOMINAL PAIN AND WILL ADMINISTER PRN PAIN MEDICATION ACCORDINGLY. SAFETY MEASURES IN PLACE: BED IN LOWEST LOCKED POSITION, BED ALARM ON, SIDE RAILS UPX2, CALL LIGHT WITHIN EASY REACH. WILL CONTINUE TO MONITOR.
[2020-11-23] MEDS: PANTOPRAZOLE 40 MG VIAL IV SCH (22:19)
--- NOTE | 2020-11-24 01:05 | NUR ---
MS RN NOTES PATIENT REPORTED BLEEDING ON ABDOMINAL SURGICAL SITE. MINIMAL BLEEDING NOTED, APPLIED PRESSURE FOR 5 MINUTES; CHANGED SURGICAL BANDAGE. DRESSING KEPT C/D/I, NO ACTIVE BLEEDING NOTED. DR. ELDER NIXON AWARE, ORDERED TRIPLE ANTIBIOTICS. NOTED AND ORDERED. BP 121/69, P 84, RR 20, T 98.6F, O2SAT 94% ON ROOM AIR. WILL CONTINUE TO MONITOR.
[2020-11-24 01:16] VITALS: BP 121/69
[2020-11-24] MEDS: HYDROMORPHONE INJ 2 MG/ML DISP.SYRIN IV PRN ×6 (03:07→23:10)
[2020-11-24] MEDS: PIPERACILLIN /TAZOBACTAM 3.375 G in IV D5W 100 ML IV SCH (04:33)
[2020-11-24] MEDS: LACTULOSE 10 G/15 ML UDC (PYXIS) PO SCH ×4 (05:30→23:30)
[2020-11-24] MEDS: IV D5 LR 1,000 ML IV PRN ×2 (05:35→22:31)
--- NOTE | 2020-11-24 07:23 | NUR ---
MS RN CLOSING NOTES PATIENT IN BED A/OX4; ABLE TO MAKE NEEDS KNOWN. ON ROOM AIR; TOLERATING WELL WITH NO SOB. ABDOMINAL SURGICAL SITE DRESSING KEPT C/D/I. COLOSTOMY SITE ON LLQ; SITE KEPT CLEAN AND DRY; BAG INTACT WITH SMALL OUTPUT. IV #20 ON JEY; PATENT AND INTACT; D5LR @ 100ML/HR. SAFETY MEASURES IN PLACE: BED IN LOWEST LOCKED POSITION, BED ALARM ON, SIDE RAILS UPX2, CALL LIGHT WITHIN EASY REACH. WILL CONTINUE TO MONITOR.
--- NOTE | 2020-11-24 07:56 | NUR ---
OPEN NOTES PATIENT IS A/O X 4 WITH NO SIGNS OF DISTRESS, ROOM AIR. IV L FA #18G RUNNING D5 LR AT 100ML/HR. NO COMPLAIN OF PAIN AT THIS TIME. LLQ OSTOMY BAG INTACT. SAFETY MEASURES ARE APPLIED BED IS IN THE LOWEST POSITION SIDE RAILS UP X 2. CALL LIGHT WITHIN REACH WILL CONTINUE TO MONITOR.
[2020-11-24 08:00] VITALS: BP 112/63
[2020-11-24] MEDS: ONDANSETRON HCL/PF 4 MG/2 ML VIAL IVP PRN ×3 (08:58→21:11)
[2020-11-24] MEDS: BACI/NEOM/POLY B OINT PKT 1 UDPKT PACKET TP SCH ×2 (10:40→16:31)
[2020-11-24 13:30] LABS: BASOPHILS % (AUTO) 0.3 % (0.0-2.0); EOSINOPHILS % (AUTO) 2.7 % (0.0-6.0); HEMATOCRIT 39 % (39-51); LYMPHOCYTES % (AUTO) 9.9 % (20.0-44.0); MEAN CORPUSCULAR HGB CONC 33 g/dl (31.0-36.0); MEAN CORPUSCULAR VOLUME 84 fL (80-96); MONOCYTES # (AUTO) 0.8 /CMM (0.1-1.30); MONOCYTES % (AUTO) 8.6 % (2.0-12.0); NEUTROPHILS # (AUTO) 7.6 /CMM (1.8-8.9); NEUTROPHILS % (AUTO) 78.5 % (43.0-81.0); PLATELET COUNT (AUTO) 379 /CMM (150-450); RED BLOOD CELL COUNT(AUTO) 4.64 MIL/uL (4.5-6.0); WHITE BLOOD COUNT (AUTO) 9.6 K/uL (4.3-11.0)
[2020-11-24 13:47] LABS: CALCIUM, SERUM 8.6 mg/dL (8.5-10.1); MAGNESIUM 2.1 mg/dL (1.8-2.4); PHOSPHORUS 3.8 mg/dL (2.5-4.9); POTASSIUM 3.8 mmol/L (3.5-5.1)
[2020-11-24 16:00] VITALS: BP 119/72
--- NOTE | 2020-11-24 19:37 | NUR ---
MS RN OPENING NOTES PATIENT IN BED AAOX4; ABLE TO MAKE NEEDS KNOWN. ON ROOM AIR; TOLERATING WELL WITH NO SOB. ABDOMINAL SURGICAL SITE DRESSING KEPT C/D/I; ABDOMINAL BINDER ON TOLERATED. VOIDED X1 225ML VIA URINAL WITH CLEAR DARK YELLOW OUTPUT. COLOSTOMY SITE ON LLQ; SITE KEPT CLEAN AND DRY; BAG INTACT WITH SMALL AMOUNT BM OF OUTPUT. IV #20 ON JEY; PATENT AND INTACT; D5LR @ 100ML/HR. PATIENT COMPLAINS OF ABDOMINAL PAIN AND WILL ADMINISTER PRN PAIN MEDICATION ACCORDINGLY. SAFETY MEASURES IN PLACE: BED IN LOWEST LOCKED POSITION, BED ALARM ON, SIDE RAILS UPX2, CALL LIGHT WITHIN EASY REACH. WILL CONTINUE TO MONITOR.
--- NOTE | 2020-11-24 19:53 | NUR ---
CLOSING NOTES PATIENT IS A/O X 4 WITH NO SIGNS OF DISTRESS, ROOM AIR. IV L FA #18G RUNNING D5 LR AT 100ML/HR. NO COMPLAIN OF PAIN AT THIS TIME. LLQ OSTOMY BAG INTACT. PATIENT KEPT CLEAN AND DRY. ALL NEEDS, CARE, TREATMENT, AND MEDICATIONS WERE ADMINISTERED ANTICIPATED PER ORDER. SAFETY MEASURES ARE APPLIED, BED IS IN LOW POSITION SIDE RAILS UP X 2. CALL LIGHT WITHIN REACH WILL ENDORSE TO THE HOSPICE/HOME HEALTH AIDE NURSE.
[2020-11-24] MEDS: IPRATROPIUM NEB FS 0.5 MG/2.5 ML AMPUL.NEB NEB PRN (19:54)
[2020-11-24] MEDS: ALBUTEROL HALF STRENGTH 1.25 MG/3 ML VIAL.NEB NEB PRN (19:54)
[2020-11-24 20:00] VITALS: BP 108/77
[2020-11-24] MEDS: PANTOPRAZOLE 40 MG VIAL IV SCH (21:11)
--- NOTE | 2020-11-24 22:19 | NUR ---
RN NOTES: NEW ORDERS DR. NIXON MADE NEW MEDICATION ORDERS: -MOTRIN 800MG PO -NEURONTIN 300MG PO - TYLENOL 700MG PO TO BE TAKEN TOGETHER EVERY 8 HOURS CONTINUOUS FOR PAIN. ORDERS TO KEEP DILAUDID PRN. NOTED AND ORDERS CARRIED OUT. PATIENT AWARE. Addendum: 11/24/20 at 2352 by AGAPITO RÍOS RN CORRECTION - TYLENOL 650MG PO
[2020-11-24] MEDS ORDERED: ACETAMINOPHEN 325 MG TABLET ONE (23:40)
[2020-11-24] MEDS: ACETAMINOPHEN 325 MG TABLET PO SCH (23:46)
[2020-11-25] MEDS ORDERED: ACETAMINOPHEN 325 MG TABLET PO SCH
[2020-11-25] MEDS: GABAPENTIN 300 MG CAPSULE PO SCH ×4 (04:12→20:24)
[2020-11-25] MEDS: HYDROMORPHONE INJ 2 MG/ML DISP.SYRIN IV PRN ×6 (04:13→22:34)
[2020-11-25] MEDS: ACETAMINOPHEN 325 MG TABLET PO SCH ×3 (04:13→20:24)
[2020-11-25] MEDS: ONDANSETRON HCL/PF 4 MG/2 ML VIAL IVP PRN ×3 (04:33→20:23)
[2020-11-25] MEDS: IBUPROFEN 400 MG TABLET PO SCH ×3 (04:33→20:24)
[2020-11-25] MEDS ORDERED: IBUPROFEN 800 MG TABLET PO SCH ×2 (05:00)
[2020-11-25] MEDS ORDERED: GABAPENTIN 300 MG CAPSULE PO SCH ×2 (05:00)
[2020-11-25] MEDS: LACTULOSE 10 G/15 ML UDC (PYXIS) PO SCH (05:30)
--- NOTE | 2020-11-25 06:26 | NUR ---
MS RN CLOSING NOTES PATIENT IN BED AAOX4; ABLE TO MAKE NEEDS KNOWN. ON ROOM AIR; TOLERATING WELL WITH NO SOB. ABDOMINAL SURGICAL SITE DRESSING KEPT C/D/I; ABDOMINAL BINDER ON TOLERATED. ABDOMINAL DISTENSION NOTED. COLOSTOMY SITE ON LLQ; SITE KEPT CLEAN AND DRY; BAG INTACT WITH SMALL AMOUNT BM OF OUTPUT. IV #20 ON JEY; PATENT AND INTACT; D5LR @ 100ML/HR. SAFETY MEASURES IN PLACE: BED IN LOWEST LOCKED POSITION, BED ALARM ON, SIDE RAILS UPX2, CALL LIGHT WITHIN EASY REACH. WILL CONTINUE TO MONITOR.
--- NOTE | 2020-11-25 07:05 | NUR ---
CHIEF ESTIMATOR OPENING NOTES RECEIVED PT AWAKE IN BED AT THIS TIME. AOX4. NO SOB NOTED, NO S/S OF ANY APPARENT DISTRESS NOTED. NO C/O PAIN NOTED AT THIS TIME. RESPIRATIONS ARE EVEN AND UNLABORED PT STABLE ON RA. IV ACCESS NOTED IN LFA G#18 INTACT, PATENT AND FLUSHING WELL. COLOSTOMY NOTED WITH BROWN SOFT STOOL ASPIRATION, RESPIRATORY AND SAFETY PRECAUTION IN PLACE AND MAINTAINED AT ALL TIMES. BED IN LOWEST LOCKED POSITION, HOB ELEVATED, SIDE RAILS UP X 2, CALL LIGHT AND TABLE WITHIN REACH. WILL CONTINUE WITH PLAN OF CARE.
[2020-11-25 08:00] VITALS: BP 117/70
[2020-11-25] MEDS ORDERED: ACETAMINOPHEN 650 MG/20.3 ML UDC PO SCH ×2 (09:00)
[2020-11-25] MEDS: BACI/NEOM/POLY B OINT PKT 1 UDPKT PACKET TP SCH ×2 (09:34→16:11)
[2020-11-25] MEDS: ALBUTEROL HALF STRENGTH 1.25 MG/3 ML VIAL.NEB NEB PRN ×2 (11:04→14:37)
[2020-11-25] MEDS: IPRATROPIUM NEB FS 0.5 MG/2.5 ML AMPUL.NEB NEB PRN ×2 (11:04→14:37)
--- NOTE | 2020-11-25 11:12 | NUR ---
PT C/O ACHING MEDIAL ABDOMINAL PAIN OF 1010. PT NOTED GUARDING. VS WNL. PER PT REQUEST, DILAUDID 2MG IV Q3HR PRN FOR PAIN WAS ADMINISTERED AT THIS TIME PER ORDER. WILL CONTINUE TO MONITOR
--- NOTE | 2020-11-25 11:47 | NUR ---
PER DOCTOR HUSSAIN, DISCONTINUE LACTULOSE, ORDERS READ BACK AND CARRIED OUT. WILL CONTIINUE TO MONITOR
--- NOTE | 2020-11-25 13:02 | NUR ---
RT NOTE RT WAS CALLED TO PATIENT'S ROOM TO ADMINISTER A PRN TX. RT ADMINISTERED PRN TX AT 1105 AM. RT CALLED AT 1300 TO GIVE PRN TX BECAUSE PATIENT IS ACCUSING RT OF NOT ADMINISTERING PREVIOUS PRN TX. RT EXPLAINED TO PT THAT THE PRN TX WAS ADMINISTERED AT 1105. RN IMMACULATE AT BEDSIDE. CHARGE NURSE TRACY FELIX. NO SOB NOTED.
--- NOTE | 2020-11-25 13:43 | NUR ---
PT C/O NAUSEA. NO EMESIS NOTED. PER PT REQUEST,ZOFRAN 4MG IVP Q6HR ADMINISTERED AT THIS TIME. WILL CONTINUE TO MONITOR
[2020-11-25 16:00] VITALS: BP 124/74
--- NOTE | 2020-11-25 16:23 | NUR ---
PT C/O ACHING, THROBBING GUARDING MEDIAL ABDOMINAL PAIN OF 10/10. VS WNL. PER PT REQUEST, DILAUDID 2MG IV Q3HR PRN FOR PAIN WAS ADMINISTERED AT THIS TIME PER ORDER. WILL CONTINUE TO MONITOR
[2020-11-25] MEDS: IV D5 LR 1,000 ML IV PRN (18:32)
--- NOTE | 2020-11-25 19:00 | NUR ---
RN Note Patient Received. Patient is noted in bed, awake, alert and oriented x4. Currently on room air with breathing even and non labored. No signs of acute distress or shortness of breath. Patient is noted with LFA 18G noted to be patent and intact. Surgical site noted to Abdomen with no bleeding noted. Colostomy bag in place and draining. Safety measures in place with bed in lowest position and locked. Call light within reach. All needs attended to promptly. Will continue plan of care as ordered.
--- NOTE | 2020-11-25 19:05 | NUR ---
RN CLOSING NOTES PT AWAKE IN BED AT THIS TIME. PT REMAINED STABLE THROUGHOUT SHIFT. ALL CARE, NEED, MEDICATIONS AND TREATMENT ADMINISTERED ANTICIPATED PER ORDER. PT KEPT CLEAN AND DRY. PAIN MANAGEMENT AND NAUSEA CONTROL ADMINISTERED PER ORDER. ASPIRATION AND SAFETY PRECAUTION IN PLACE AND MAINTAINED AT ALL TIMES. BED IN LOWEST LOCKED POSITION, HOB ELEVATED, SIDE RAILS UP X 2, CALL LIGHT AND TABLE WITHIN REACH. ENDORSED TO ROTO GRAVURE PRESS OPERATOR NURSE FOR ROSALINA
--- NOTE | 2020-11-25 19:33 | NUR ---
PT C/O ACHING, THROBBING GUARDING MEDIAL ABDOMINAL PAIN OF 10/10. VS WNL. PER PT REQUEST, DILAUDID 2MG IV Q3HR PRN FOR PAIN ADMINISTERED AT THIS TIME PER ORDER. WILL CONTINUE TO MONITOR
[2020-11-25 20:00] VITALS: BP 123/74
[2020-11-25] MEDS: PANTOPRAZOLE 40 MG VIAL IV SCH (22:33)
[2020-11-25] MEDS ORDERED: BELLADONNA ALK/PHENOBARB TAB 16.2 MG TABLET PO PRN (23:30)
[2020-11-26] MEDS: SIMETHICONE 80 MG TAB.CHEW PO PRN ×4 (01:01→20:51)
[2020-11-26] MEDS: HYDROMORPHONE INJ 2 MG/ML DISP.SYRIN IV PRN ×7 (01:35→22:00)
[2020-11-26 05:00] VITALS: BP 106/62
[2020-11-26] MEDS: IBUPROFEN 400 MG TABLET PO SCH ×3 (05:00→20:42)
[2020-11-26] MEDS: ACETAMINOPHEN 325 MG TABLET PO SCH ×3 (05:00→20:42)
[2020-11-26] MEDS: IV D5 LR 1,000 ML IV PRN ×2 (05:48→22:02)
--- NOTE | 2020-11-26 07:32 | NUR ---
RN Note Patient is noted in bed, awake, alert and oriented x4. Currently on room air with breathing even and non labored. No signs of acute distress or shortness of breath. Patient is noted with LFA 22G noted to be patent and intact. Surgical site noted to Abdomen with no bleeding noted. Colostomy bag in place and draining. Safety measures in place with bed in lowest position and locked. Call light within reach. All needs attended to promptly. Will endorse to continue plan of care as ordered.
--- NOTE | 2020-11-26 07:50 | NUR ---
m/s rodeo clown: notes received pt in bed, spoke to him for 20 minutes, pt has a lot of concerns and very demanding. he wants to leave at 4 pm, he wants covid test prior to leaving here, he wants a lot of supplies of colostomy, and he says he is going to be on pain. all concerns answered and informed him that i will have case management call him and doctor to order covid test. cn made aware.
[2020-11-26 08:00] VITALS: BP 113/73
[2020-11-26] MEDS: GABAPENTIN 300 MG CAPSULE PO SCH ×3 (08:32→20:42)
[2020-11-26] MEDS ORDERED: PANTOPRAZOLE 40 MG TABLET.DR PO SCH (09:00)
--- NOTE | 2020-11-26 09:09 | NUR ---
m/s creping machine operator: notes c/o 07/25 abdominal pain, offered norco, but pt refuses. pt aware for d'c planning home today. pt argumentative whenever staff providing teaching. pt remains needy and manipulative. will continue to monitor.
[2020-11-26] MEDS: ONDANSETRON HCL/PF 4 MG/2 ML VIAL IVP PRN ×2 (09:16→18:57)
--- NOTE | 2020-11-26 09:39 | NUR ---
m/s assistant men's soccer coach: notes voiced no discomfort, pt is on the phone at this time. will monitor.
--- NOTE | 2020-11-26 12:30 | NUR ---
m/s household assistant: notes c/o 07/25 abdominal pain, offered norco once more but pt refuses, stated, "it doesn't work, causes constipation." ask pt if we can alternate po in between iv pain med, but still refuses. pt aware for d'c planning home today. pt still argumentative whenever staff providing teaching. pt remains needy and manipulative. will continue to monitor.
--- NOTE | 2020-11-26 13:00 | NUR ---
m/s payroll supervisor: notes verbalized some relief 02/22. still awaiting for case management to arrange home health and colostomy supplies. will continue to monitor.
[2020-11-26] MEDS: BACI/NEOM/POLY B OINT PKT 1 UDPKT PACKET TP SCH ×3 (13:36→17:16)
--- NOTE | 2020-11-26 15:32 | NUR ---
m/s weather algorithm scientist: notes c/o 07/25 abdominal pain, offered norco, but pt still refuses and does not want to alternate po norco. pt argumentative whenever staff providing teaching. pt remains needy and manipulative. will continue to monitor.
[2020-11-26 16:00] VITALS: BP 127/72
--- NOTE | 2020-11-26 16:00 | NUR ---
m/s airplane captain: notes donavon (trino) called and informed me that she has spoken to pt and made aware that everything was arranged including home health visit and colostomy products. left message to dr. gonzalez and ask him if he is going to discharge the pt today or tomorrow. pt is cleared by surgeon (dr. dial). cn and case management aware.
--- NOTE | 2020-11-26 16:30 | NUR ---
m/s splitter hand: notes showed norco and augmentin prescriptions to pt and started cursing at the doctors. pt wants percocet prescription instead of norco. he says norco is shit, doesn't do anything, i have 2 major surgery already. he also wants dr. dial prescribe yesterday like the neurontin 300mg, tylenol 650mg, and motrin 800mg po q8 hrs. case management aware and will inform dr. gonzalez about it. cn aware. pt still upset, pt doesn't want to do anything and doesn't want to listen with my explanation.
--- NOTE | 2020-11-26 17:00 | NUR ---
m/s barrel rifler: notes pt still upset, refusing his to leave. cn, cm, and dr. gonzalez aware without percocet and his other medications. pt refused his meal. he says he already called his , but i'm too nervous and i sent them home. pt still cursing at the doctors, stated, "i'm rich, i could get this fucking meds myself, how come they can't give them to me."
--- NOTE | 2020-11-26 18:30 | NUR ---
m/s presidential helicopter crew chief: notes pt still angry and still refusing to leave today. he wants percocet, neurontin, motrin, simethicone, and tylenol prescriptions. pt is aware some of the meds are over the counter. dr. dial, dr. gonzalez, and case management aware.
--- NOTE | 2020-11-26 18:58 | NUR ---
m/s die cleaner: notes pt is very apologetic with the nurses. pt request for zofran and dilaudid. when norco is brought up, pt gets upset. dilaudid 2mg ivp given by rn and zofran 4mg ivp given by rn. instructed to call for assistance. will continue to monitor.
--- NOTE | 2020-11-26 19:25 | NUR ---
m/s filter tender: notes report given to yuliet (geovanna) for continuity of care.
--- NOTE | 2020-11-26 19:30 | NUR ---
MS RN OPENING NOTES RECEIVED PATIENT IN BED AWAKE, ALERT AND ORIENTED X3. NO S/SX OF ACUTE RESPIRATORY DISTRESS NOTED. IV ACCESS ON LEFT WRIST PATENT AND INTACT. DENIES PAIN OR DISCOMFORT AT THIS TIME. ASPIRATION AND SAFETY PRECAUTION IN PLACE AND MAINTAINED AT ALL TIMES. BED IN LOWEST LOCKED POSITION, HOB ELEVATED, SIDE RAILS UP X 2, CALL LIGHT AND TABLE WITHIN REACH. WILL CONTINUE TO MONITOR.
[2020-11-26 20:00] VITALS: BP 129/75
[2020-11-26 20:29] VITALS: BP 129/75
[2020-11-26] MEDS: PANTOPRAZOLE 40 MG VIAL IV SCH (21:53)
[2020-11-27] MEDS: HYDROMORPHONE INJ 2 MG/ML DISP.SYRIN IV PRN ×2 (01:25→06:44)
[2020-11-27] MEDS: ONDANSETRON HCL/PF 4 MG/2 ML VIAL IVP PRN (01:27)
[2020-11-27] MEDS: diphenhydrAMINE HCL 50 MG CAPSULE PO PRN (02:35)
[2020-11-27] MEDS: IBUPROFEN 400 MG TABLET PO SCH ×2 (04:42→12:47)
[2020-11-27] MEDS: ACETAMINOPHEN 325 MG TABLET PO SCH ×2 (04:42→12:47)
--- NOTE | 2020-11-27 06:47 | NUR ---
MS RN CLOSING NOTES PATIENT IN BED A/OX4; ABLE TO MAKE NEEDS KNOWN. NO S/SX OF ACUTE RESPIRATORY DISTRESS NOTED. ON ROOM AIR, TOLERATING WELL. ABDOMINAL SURGICAL SITE DRESSING KEPT CLEAN, DRY AND INTACT. COLOSTOMY SITE ON LLQ. IV ACCESS ON JEY #20G PATENT AND INTACT, D5LR @ 100ML/HR. ALL DUE MEDS GIVEN ORDERED. SAFETY MEASURES IN PLACE. BED IN LOWEST LOCKED POSITION, BED ALARM ON, SIDE RAILS UPX2, CALL LIGHT WITHIN EASY REACH. WILL ENDORSE TO DAY SHIFT NURSE FOR CONTINUITY OF CARE.
[2020-11-27 08:00] VITALS: BP 126/71
--- NOTE | 2020-11-27 08:00 | NUR ---
MS RN AM NOTES PATIENT IN BED A/OX4; ABLE TO MAKE NEEDS KNOWN. NO S/SX OF ACUTE RESPIRATORY DISTRESS NOTED. ON ROOM AIR, TOLERATING WELL. ABDOMINAL SURGICAL SITE DRESSING KEPT CLEAN, DRY AND INTACT. COLOSTOMY SITE ON LLQ. IV ACCESS ON JEY #20G PATENT AND INTACT, AM MEDS GIVEN ORDERED. SAFETY MEASURES IN PLACE. BED IN LOWEST LOCKED POSITION, BED ALARM ON, SIDE RAILS UPX2, CALL LIGHT WITHIN EASY REACH.
[2020-11-27] MEDS: SIMETHICONE 80 MG TAB.CHEW PO PRN (08:58)
[2020-11-27] MEDS: GABAPENTIN 300 MG CAPSULE PO SCH ×2 (08:59→12:47)
[2020-11-27] MEDS: BACI/NEOM/POLY B OINT PKT 1 UDPKT PACKET TP SCH (09:16)
[2020-11-27] MEDS: HYDROCODONE/APAP 10/325MG TABLET PO PRN (11:25)
--- NOTE | 2020-11-27 13:00 | NUR ---
DISCHARGED PT HOME WITH [facility] FOLLOW UP . IV HEPLOCK REMOVED TO LT WRIST WITH NO BLEEDING OR SWELLING NOTED.COLOSTOMY BAG CHANGED WITH PT TEACHING INSTRUCTIONS PROVIDED REGARDING COLOSTOMY BAG CHANGES AND SKIN CARE MANAGEMENT.PT WAS PICKED UP BY HIS HELPER VIA PRIVATE CAR.FWW PROVIDED.
[2020-11-27] MEDS ORDERED: HYDR-4384 PO (13:48)
== END 2020-11-27 13:00 | disposition home health service (06) | DRG 330 ==
LOC: ER 15:59 → TRANSITION 21:31 → MED 23:51
PROVIDERS: ADMIT Nurse Practitioner Acute Care
PROC: 0DBN0ZZ Excision of Sigmoid Colon, Open Approach (ICD-10-PCS; principal; 2020-11-13)
PROC: 0D1N0Z4 Bypass Sigmoid Colon to Cutaneous, Open Approach (ICD-10-PCS; 2020-11-13)
PROC: 0DBN0ZZ Excision of Sigmoid Colon, Open Approach (ICD-10-PCS; 2020-11-16)
DX: K57.20 Diverticulitis of large intestine with perforation and abscess without bleeding (principal); J45.901 Unspecified asthma with (acute) exacerbation; K91.30 Postprocedural intestinal obstruction, unspecified as to partial versus complete; D64.9 Anemia, unspecified; Z20.822 Contact with and (suspected) exposure to COVID-19; Z79.51 Long term (current) use of inhaled steroids
CPT/HCPCS: 36415; 71045-TC; 74018; 80048-TC; 80053-TC; 80061-TC; 80076-TC; 81001; 82550-TC; 82728-TC; 82962-TC; 83605-TC; 83690-TC; 83735-TC; 84100-TC; 85025-TC; 85378-TC; 85610-TC; 85730-TC; 86850-TC; 87070-TC; 87081-TC; 87186-TC; 88307-TC; 94799-TC; 97112-TC; 97530-TC; A6253; A6403; C9113; C9803; G0378; J0171; J0330; J1100; J1170; J1885; J2250; J2270; J2405; J2543; J2704; J3010; J3480; J3490; J7030; J7050; J7060; J7120; Q0163; U0003

== ENCOUNTER 2020-12-18 03:58 | Inpatient (IN) | payer OTHER ==
[~2020-12-18] VITALS: Ht 180.3 cm; Wt 90.3 kg
[~2020-12-18 03:58] MED LIST: ALBU18HF2 IH; HYDR-4384 PO
[2020-12-18] MEDS ORDERED: ONDANSETRON HCL/PF 4 MG/2 ML VIAL ONE ×2 (04:19→14:18)
[2020-12-18] MEDS ORDERED: MORPHINE SULFATE INJ 4 MG/ML DISP.SYRIN ONE (04:19)
[2020-12-18] MEDS ORDERED: IV NS 0.9% 1,000 ML BAG IV ONE (04:30)
[2020-12-18] MEDS ORDERED: ONDANSETRON HCL/PF 4 MG/2 ML VIAL IVP ONE (04:30)
[2020-12-18] MEDS ORDERED: MORPHINE SULFATE INJ 2 MG/ML DISP.SYRIN IV ONE (04:30)
[2020-12-18 04:40] LABS: BASOPHILS % (AUTO) 0.4 % (0.0-2.0); EOSINOPHILS % (AUTO) 3.1 % (0.0-6.0); HEMATOCRIT 38 % (39-51); HEMOGLOBIN 12.8 g/dL (13.5-17.5); LYMPHOCYTES # (AUTO) 1.1 /CMM (0.8-4.8); LYMPHOCYTES % (AUTO) 16.1 % (20.0-44.0); MEAN CORPUSCULAR HGB CONC 34 g/dl (31.0-36.0); MEAN CORPUSCULAR VOLUME 82 fL (80-96); MONOCYTES # (AUTO) 0.5 /CMM (0.1-1.30); MONOCYTES % (AUTO) 7.6 % (2.0-12.0); NEUTROPHILS % (AUTO) 72.8 % (43.0-81.0); PLATELET COUNT (AUTO) 257 /CMM (150-450); WHITE BLOOD COUNT (AUTO) 6.8 K/uL (4.3-11.0)
[2020-12-18 05:00] LABS: CALCIUM, SERUM 9.3 mg/dL (8.5-10.1); CREATININE 0.8 mg/dL (0.6-1.3); POTASSIUM 3.3 mmol/L (3.5-5.1)
[2020-12-18 05:07] LABS: ALBUMIN 3.5 g/dL (3.4-5.0); BILIRUBIN,DIRECT 0.1 mg/dL (0.0-0.2); BILIRUBIN,TOTAL 0.4 mg/dL (0.2-1.0); TOTAL PROTEIN, SERUM 6.9 g/dL (6.4-8.2)
[2020-12-18] MEDS ORDERED: HYDROMORPHONE 1 MG/1 ML DISP.SYRIN ONE ×4 (05:18→17:35)
[2020-12-18] MEDS ORDERED: DIATR MEGLU/DIATRIZOATE SODIUM 30 ML BOTTLE (GASTROGRAPHIN) ONE (05:28)
[2020-12-18] MEDS ORDERED: DIATR MEGLU/DIATRIZOATE SODIUM 120 ML BOTTLE (GASTROGRAPHIN) PO ONE (05:30)
[2020-12-18] MEDS ORDERED: HYDROMORPHONE 1 MG/1 ML DISP.SYRIN IV ONE ×3 (05:30→09:30)
[2020-12-18] MEDS ORDERED: IOHEXOL-300 100 ML VIAL IV ONE (06:51)
[2020-12-18] MEDS ORDERED: IV NS 0.9% 250 ML IV ONE (06:51)
[2020-12-18] MEDS ORDERED: CT SWABBABLE VALVE TRANS SET 1 EA INFUS.SET MC ONE (06:51)
[2020-12-18] MEDS ORDERED: PIPERACILLIN /TAZOBACTAM 3.375 G in IV D5W 50 ML IV ONE (08:30)
[2020-12-18 08:33] LABS: BILIRUBIN,URINE NEGATIVE (NEGATIVE); COLOR,URINE YELLOW (YELLOW); LEUKOCYTE ESTERASE ,URINE NEGATIVE (NEGATIVE); NITRITE, URINE NEGATIVE (NEGATIVE); PROTEIN,URINE NEGATIVE (NEGATIVE); UGLUCOSE NEGATIVE (NEGATIVE); UROBILINOGEN,URINE 0.2 EU/dL (0.2)
[2020-12-18] MEDS ORDERED: KETOROLAC TROMETHAMINE INJ 30 MG/ML VIAL ONE (11:55)
[2020-12-18] MEDS: KETOROLAC TROMETHAMINE INJ 30 MG/ML VIAL IV PRN (12:02)
[2020-12-18] MEDS: IV D5/0.45 NACL 1,000 ML IV PRN ×2 (12:02→23:00)
[2020-12-18] MEDS: HYDROMORPHONE 1 MG/1 ML DISP.SYRIN IV PRN ×2 (12:35→17:38)
[2020-12-18] MEDS ORDERED: MAGNESIUM HYDROXIDE 30 ML UDC PO PRN (13:00)
[2020-12-18] MEDS ORDERED: MAG HYDROX/AL HYDROX/SIMETH 30 ML UDC PO PRN (13:00)
[2020-12-18] MEDS ORDERED: ZOLPIDEM TARTRATE 5 MG TABLET PO PRN (13:00)
[2020-12-18] MEDS ORDERED: Z GUARD REMEDY 2 OZ OINT TP PRN (13:00)
[2020-12-18] MEDS: ONDANSETRON HCL/PF 4 MG/2 ML VIAL IVP PRN (14:21)
[2020-12-18] MEDS: PIPERACILLIN /TAZOBACTAM 3.375 G in IV D5W 100 ML IV SCH (17:42)
[2020-12-18] MEDS ORDERED: METOCLOPRAMIDE HCL 10 MG/2 ML VIAL ONE (17:44)
[2020-12-18] MEDS ORDERED: METOCLOPRAMIDE HCL 10 MG/2 ML VIAL IV SCH (18:00)
[2020-12-18] MEDS ORDERED: LORAZEPAM INJ 2 MG/ML VIAL ONE (18:22)
[2020-12-18] MEDS ORDERED: LORAZEPAM INJ 2 MG/ML VIAL IV ONE (18:30)
[2020-12-19] MEDS ORDERED: PIPERACILLIN /TAZOBACTAM 3.375 G VIAL IV ONE (01:28)
[2020-12-19] MEDS: PIPERACILLIN /TAZOBACTAM 3.375 G in IV D5W 100 ML IV SCH ×3 (01:50→18:07)
[2020-12-19 04:53] LABS: BASOPHILS % (AUTO) 0.2 % (0.0-2.0); EOSINOPHILS % (AUTO) 0.2 % (0.0-6.0); HEMATOCRIT 39 % (39-51); HEMOGLOBIN 13.1 g/dL (13.5-17.5); LYMPHOCYTES # (AUTO) 0.7 /CMM (0.8-4.8); MEAN CORPUSCULAR HGB CONC 33 g/dl (31.0-36.0); MEAN CORPUSCULAR VOLUME 83 fL (80-96); MONOCYTES # (AUTO) 0.8 /CMM (0.1-1.30); MONOCYTES % (AUTO) 6.9 % (2.0-12.0); NEUTROPHILS # (AUTO) 10.3 /CMM (1.8-8.9); NEUTROPHILS % (AUTO) 86.7 % (43.0-81.0); PLATELET COUNT (AUTO) 212 /CMM (150-450); RED BLOOD CELL COUNT(AUTO) 4.77 MIL/uL (4.5-6.0); WHITE BLOOD COUNT (AUTO) 11.9 K/uL (4.3-11.0)
[2020-12-19 05:39] LABS: ALBUMIN 3.1 g/dL (3.4-5.0); BILIRUBIN,DIRECT 0.1 mg/dL (0.0-0.2); BILIRUBIN,TOTAL 0.7 mg/dL (0.2-1.0); CALCIUM, SERUM 8.7 mg/dL (8.5-10.1); CREATININE 1.2 mg/dL (0.6-1.3); MAGNESIUM 1.7 mg/dL (1.8-2.4); PHOSPHORUS 3.7 mg/dL (2.5-4.9); POTASSIUM 3.8 mmol/L (3.5-5.1); TOTAL PROTEIN, SERUM 6.5 g/dL (6.4-8.2)
[2020-12-19 07:28] LABS: THYROID STIMULATING HORMONE 0.301 uIU/mL (0.358-3.74)
[2020-12-19] MEDS ORDERED: PANTOPRAZOLE 40 MG VIAL ONE (07:58)
[2020-12-19] MEDS ORDERED: HYDROMORPHONE 1 MG/1 ML DISP.SYRIN ONE (08:56)
[2020-12-19] MEDS ORDERED: ONDANSETRON HCL/PF 4 MG/2 ML VIAL ONE (09:08)
[2020-12-19] MEDS: PANTOPRAZOLE 40 MG VIAL IV SCH (09:19)
[2020-12-19] MEDS: ONDANSETRON HCL/PF 4 MG/2 ML VIAL IVP PRN ×3 (09:19→23:56)
[2020-12-19] MEDS: HYDROMORPHONE 1 MG/1 ML DISP.SYRIN IV PRN ×4 (09:19→23:56)
[2020-12-19] MEDS: IV D5/0.45 NACL 1,000 ML IV PRN (09:19)
[2020-12-19] MEDS ORDERED: Magnesium 1GM/D5W 100ML PREMIX 200 ML IV ONE (10:16)
[2020-12-19] MEDS: Magnesium 1GM/D5W 100ML PREMIX 100 ML IV SCH ×2 (10:30→12:06)
[2020-12-19] MEDS ORDERED: LIDOCAINE 1% INJ 50 ML MDV IJ ONE (10:40)
[2020-12-19] MEDS ORDERED: BUPIVACAINE MPF W/EPI 0.25% 30 ML VIAL ONE (10:40)
[2020-12-19] MEDS ORDERED: CELLULOSE,OXIDIZED 1 PKT EACH MC ONE (14:45)
[2020-12-19] MEDS ORDERED: CELLULOSE,OXIDIZED 1 EACH EACH MC ONE (14:47)
[2020-12-19] MEDS ORDERED: PHYTONADIONE INJ 10 MG/1 ML AMPUL ONE (14:57)
[2020-12-19] MEDS ORDERED: FENTANYL PF 100MCG/2ML AMPUL ONE (15:33)
[2020-12-19] MEDS ORDERED: IV LR 1000 ML 1,000 ML IV PRN (17:00)
[2020-12-19] MEDS ORDERED: IV LR 1000 ML 1,000 ML IV ONE (17:00)
[2020-12-19 20:00] VITALS: BP 126/88
[2020-12-20] MEDS ORDERED: HYDROMORPHONE 1 MG/1 ML DISP.SYRIN IV ONE (02:00)
[2020-12-20] MEDS: PIPERACILLIN /TAZOBACTAM 3.375 G in IV D5W 100 ML IV SCH ×3 (02:18→17:27)
[2020-12-20] MEDS: HYDROMORPHONE 1 MG/1 ML DISP.SYRIN IV PRN (04:59)
[2020-12-20] MEDS: KETOROLAC TROMETHAMINE INJ 30 MG/ML VIAL IV PRN (06:05)
[2020-12-20] MEDS: ONDANSETRON HCL/PF 4 MG/2 ML VIAL IVP PRN ×3 (06:05→21:30)
[2020-12-20 06:44] LABS: BASOPHILS % (AUTO) 0.2 % (0.0-2.0); EOSINOPHILS % (AUTO) 0.5 % (0.0-6.0); HEMATOCRIT 37 % (39-51); HEMOGLOBIN 12.5 g/dL (13.5-17.5); LYMPHOCYTES # (AUTO) 0.5 /CMM (0.8-4.8); LYMPHOCYTES % (AUTO) 6.4 % (20.0-44.0); MEAN CORPUSCULAR HGB CONC 34 g/dl (31.0-36.0); MEAN CORPUSCULAR VOLUME 82 fL (80-96); MONOCYTES # (AUTO) 0.6 /CMM (0.1-1.30); MONOCYTES % (AUTO) 8.2 % (2.0-12.0); NEUTROPHILS # (AUTO) 6.3 /CMM (1.8-8.9); NEUTROPHILS % (AUTO) 84.7 % (43.0-81.0); PLATELET COUNT (AUTO) 175 /CMM (150-450); RED BLOOD CELL COUNT(AUTO) 4.47 MIL/uL (4.5-6.0); WHITE BLOOD COUNT (AUTO) 7.4 K/uL (4.3-11.0)
[2020-12-20 07:00] LABS: ALBUMIN 2.8 g/dL (3.4-5.0); BILIRUBIN,TOTAL 0.6 mg/dL (0.2-1.0); CALCIUM, SERUM 8.5 mg/dL (8.5-10.1); CREATININE 0.8 mg/dL (0.6-1.3); MAGNESIUM 2.1 mg/dL (1.8-2.4); PHOSPHORUS 2.8 mg/dL (2.5-4.9); POTASSIUM 3.4 mmol/L (3.5-5.1); TOTAL PROTEIN, SERUM 6.5 g/dL (6.4-8.2)
[2020-12-20] MEDS ORDERED: HYDROMORPHONE 1 MG/1 ML DISP.SYRIN IV PRN (08:00)
[2020-12-20 08:21] VITALS: BP 133/68
[2020-12-20] MEDS: HYDROMORPHONE INJ 2 MG/ML DISP.SYRIN IV PRN ×5 (08:30→21:28)
[2020-12-20] MEDS: PANTOPRAZOLE 40 MG VIAL IV SCH (08:30)
[2020-12-20] MEDS ORDERED: POTASSIUM CHLORIDE 20 MEQ TAB.PRT.SR PO SCH (11:30)
[2020-12-20] MEDS ORDERED: POTASSIUM CHLORIDE 20 MEQ POWDER PACKET PO SCH (11:30)
[2020-12-20] MEDS ORDERED: POTASSIUM CHLORIDE 20 MEQ POWDER PACKET PO ONE (14:00)
[2020-12-20 16:50] VITALS: BP 141/82
[2020-12-20] MEDS: ACETAMINOPHEN 325 MG TABLET PO PRN (17:26)
[2020-12-20] MEDS: HYDROCODONE/APAP 10/325MG TABLET PO PRN (19:58)
[2020-12-20 20:00] VITALS: BP 126/88
[2020-12-20] MEDS ORDERED: PIPERACILLIN /TAZOBACTAM 3.375 G in IV D5W 50 ML IV SCH (23:00)
[2020-12-21] MEDS: HYDROMORPHONE INJ 2 MG/ML DISP.SYRIN IV PRN ×7 (00:41→21:44)
[2020-12-21] MEDS: ACETAMINOPHEN 325 MG TABLET PO PRN (01:14)
[2020-12-21] MEDS: PIPERACILLIN /TAZOBACTAM 3.375 G in IV D5W 100 ML IV SCH ×3 (01:56→17:32)
[2020-12-21] MEDS: ONDANSETRON HCL/PF 4 MG/2 ML VIAL IVP PRN ×3 (06:32→18:39)
[2020-12-21 07:16] LABS: BASOPHILS % (AUTO) 0.4 % (0.0-2.0); EOSINOPHILS % (AUTO) 3.3 % (0.0-6.0); HEMATOCRIT 37 % (39-51); HEMOGLOBIN 12.2 g/dL (13.5-17.5); LYMPHOCYTES # (AUTO) 0.6 /CMM (0.8-4.8); LYMPHOCYTES % (AUTO) 12.1 % (20.0-44.0); MEAN CORPUSCULAR HGB CONC 33 g/dl (31.0-36.0); MEAN CORPUSCULAR VOLUME 83 fL (80-96); MONOCYTES # (AUTO) 0.5 /CMM (0.1-1.30); MONOCYTES % (AUTO) 9.5 % (2.0-12.0); NEUTROPHILS # (AUTO) 3.5 /CMM (1.8-8.9); NEUTROPHILS % (AUTO) 74.7 % (43.0-81.0); PLATELET COUNT (AUTO) 181 /CMM (150-450); RED BLOOD CELL COUNT(AUTO) 4.43 MIL/uL (4.5-6.0); WHITE BLOOD COUNT (AUTO) 4.7 K/uL (4.3-11.0)
[2020-12-21 07:43] LABS: CALCIUM, SERUM 8.7 mg/dL (8.5-10.1); MAGNESIUM 2.3 mg/dL (1.8-2.4); PHOSPHORUS 3.3 mg/dL (2.5-4.9); POTASSIUM 3.7 mmol/L (3.5-5.1)
[2020-12-21 08:00] VITALS: BP 110/61
[2020-12-21] MEDS: PANTOPRAZOLE 40 MG VIAL IV SCH (09:22)
[2020-12-21] MEDS: HYDROCODONE/APAP 10/325MG TABLET PO PRN ×2 (14:24→20:02)
[2020-12-21 20:00] VITALS: BP 127/76
[2020-12-22] MEDS: HYDROMORPHONE INJ 2 MG/ML DISP.SYRIN IV PRN ×7 (00:32→21:38)
[2020-12-22] MEDS: PIPERACILLIN /TAZOBACTAM 3.375 G in IV D5W 100 ML IV SCH ×3 (02:01→18:15)
[2020-12-22] MEDS: HYDROCODONE/APAP 10/325MG TABLET PO PRN ×2 (02:14→17:13)
[2020-12-22] MEDS: ONDANSETRON HCL/PF 4 MG/2 ML VIAL IVP PRN ×3 (04:09→18:15)
[2020-12-22 06:23] LABS: BASOPHILS % (AUTO) 0.3 % (0.0-2.0); EOSINOPHILS % (AUTO) 5.2 % (0.0-6.0); HEMATOCRIT 37 % (39-51); HEMOGLOBIN 12.5 g/dL (13.5-17.5); LYMPHOCYTES # (AUTO) 0.6 /CMM (0.8-4.8); LYMPHOCYTES % (AUTO) 12.6 % (20.0-44.0); MEAN CORPUSCULAR HGB CONC 34 g/dl (31.0-36.0); MEAN CORPUSCULAR VOLUME 82 fL (80-96); MONOCYTES # (AUTO) 0.6 /CMM (0.1-1.30); MONOCYTES % (AUTO) 11.5 % (2.0-12.0); NEUTROPHILS # (AUTO) 3.6 /CMM (1.8-8.9); NEUTROPHILS % (AUTO) 70.4 % (43.0-81.0); PLATELET COUNT (AUTO) 205 /CMM (150-450); RED BLOOD CELL COUNT(AUTO) 4.52 MIL/uL (4.5-6.0); WHITE BLOOD COUNT (AUTO) 5.2 K/uL (4.3-11.0)
[2020-12-22 07:03] LABS: CALCIUM, SERUM 8.9 mg/dL (8.5-10.1); PHOSPHORUS 4.1 mg/dL (2.5-4.9); POTASSIUM 3.3 mmol/L (3.5-5.1)
[2020-12-22 08:00] VITALS: BP 148/98
[2020-12-22] MEDS: PANTOPRAZOLE 40 MG VIAL IV SCH (08:31)
[2020-12-22] MEDS: ACETAMINOPHEN 325 MG TABLET PO PRN ×2 (08:32→17:14)
[2020-12-22] MEDS: METOCLOPRAMIDE HCL 10 MG/2 ML VIAL IV PRN ×2 (08:37→17:13)
[2020-12-22] MEDS ORDERED: POTASSIUM CHLORIDE 20 MEQ TAB.PRT.SR PO SCH (09:30)
[2020-12-22 16:00] VITALS: BP 130/80
[2020-12-22 18:03] LABS: BILIRUBIN,URINE NEGATIVE (NEGATIVE); COLOR,URINE YELLOW (YELLOW); LEUKOCYTE ESTERASE ,URINE NEGATIVE (NEGATIVE); NITRITE, URINE NEGATIVE (NEGATIVE); PH,URINE 7.5 (5.0-8.0); PROTEIN,URINE 30 mg/dl (NEGATIVE); UGLUCOSE NEGATIVE (NEGATIVE)
[2020-12-22 18:18] LABS: BACTERIA,URINE None seen /HPF (None Seen); SQUAMOUS EPITHELIAL CELL,UR 0-2 /HPF (None Seen); WBC,URINE 0-2 /HPF (0-3)
[2020-12-22 20:00] VITALS: BP 130/71
[2020-12-23] MEDS: HYDROMORPHONE INJ 2 MG/ML DISP.SYRIN IV PRN ×3 (00:31→07:50)
[2020-12-23] MEDS: ONDANSETRON HCL/PF 4 MG/2 ML VIAL IVP PRN (00:33)
[2020-12-23] MEDS: PIPERACILLIN /TAZOBACTAM 3.375 G in IV D5W 100 ML IV SCH (00:59)
[2020-12-23] MEDS: HYDROCODONE/APAP 10/325MG TABLET PO PRN ×3 (06:52→20:41)
[2020-12-23] MEDS: PANTOPRAZOLE 40 MG VIAL IV SCH (07:49)
[2020-12-23 08:00] VITALS: BP 119/76
[2020-12-23 08:24] LABS: BASOPHILS % (AUTO) 0.5 % (0.0-2.0); EOSINOPHILS % (AUTO) 1.9 % (0.0-6.0); HEMATOCRIT 33 % (39-51); HEMOGLOBIN 11.3 g/dL (13.5-17.5); LYMPHOCYTES # (AUTO) 0.7 /CMM (0.8-4.8); LYMPHOCYTES % (AUTO) 9.2 % (20.0-44.0); MEAN CORPUSCULAR HGB CONC 34 g/dl (31.0-36.0); MEAN CORPUSCULAR VOLUME 81 fL (80-96); MONOCYTES # (AUTO) 0.8 /CMM (0.1-1.30); MONOCYTES % (AUTO) 11.3 % (2.0-12.0); NEUTROPHILS # (AUTO) 5.6 /CMM (1.8-8.9); NEUTROPHILS % (AUTO) 77.1 % (43.0-81.0); PLATELET COUNT (AUTO) 211 /CMM (150-450); RED BLOOD CELL COUNT(AUTO) 4.08 MIL/uL (4.5-6.0); WHITE BLOOD COUNT (AUTO) 7.3 K/uL (4.3-11.0)
[2020-12-23 08:37] LABS: CALCIUM, SERUM 8.7 mg/dL (8.5-10.1); CREATININE 0.8 mg/dL (0.6-1.3); MAGNESIUM 1.8 mg/dL (1.8-2.4); PHOSPHORUS 3.4 mg/dL (2.5-4.9); POTASSIUM 3.3 mmol/L (3.5-5.1)
[2020-12-23] MEDS ORDERED: KETOROLAC TROMETHAMINE INJ 30 MG/ML VIAL IM ONE (10:00)
[2020-12-23 16:00] VITALS: BP 132/79
[2020-12-23 20:00] VITALS: BP 131/83
[2020-12-23] MEDS: KETOROLAC TROMETHAMINE INJ 30 MG/ML VIAL IM PRN (20:41)
[2020-12-24] MEDS: HYDROCODONE/APAP 10/325MG TABLET PO PRN ×5 (00:42→16:36)
[2020-12-24] MEDS: KETOROLAC TROMETHAMINE INJ 30 MG/ML VIAL IM PRN ×3 (02:38→15:25)
[2020-12-24 07:53] LABS: BASOPHILS % (AUTO) 0.4 % (0.0-2.0); EOSINOPHILS % (AUTO) 5.8 % (0.0-6.0); HEMATOCRIT 33 % (39-51); HEMOGLOBIN 11.3 g/dL (13.5-17.5); LYMPHOCYTES # (AUTO) 0.9 /CMM (0.8-4.8); LYMPHOCYTES % (AUTO) 13.1 % (20.0-44.0); MEAN CORPUSCULAR HGB CONC 34 g/dl (31.0-36.0); MEAN CORPUSCULAR VOLUME 81 fL (80-96); MONOCYTES # (AUTO) 0.7 /CMM (0.1-1.30); MONOCYTES % (AUTO) 10.6 % (2.0-12.0); NEUTROPHILS # (AUTO) 4.9 /CMM (1.8-8.9); NEUTROPHILS % (AUTO) 70.1 % (43.0-81.0); PLATELET COUNT (AUTO) 233 /CMM (150-450); RED BLOOD CELL COUNT(AUTO) 4.11 MIL/uL (4.5-6.0)
[2020-12-24 08:00] VITALS: BP 127/75
[2020-12-24 08:32] LABS: CALCIUM, SERUM 8.7 mg/dL (8.5-10.1); CREATININE 0.7 mg/dL (0.6-1.3); MAGNESIUM 1.9 mg/dL (1.8-2.4); PHOSPHORUS 3.5 mg/dL (2.5-4.9); POTASSIUM 3.3 mmol/L (3.5-5.1)
[2020-12-24] MEDS ORDERED: PANTOPRAZOLE 40 MG TABLET.DR PO SCH (09:00)
[2020-12-24] MEDS: HYDROCODONE/APAP 5/325MG TABLET PO PRN ×2 (09:10→15:27)
[2020-12-24] MEDS ORDERED: POTASSIUM CHLORIDE 20 MEQ TAB.PRT.SR PO SCH (10:00)
[2020-12-24] MEDS ORDERED: HYDR-4275 PO (12:22)
[2020-12-24] MEDS ORDERED: PANT40TA2 PO (12:22)
[2020-12-24 16:00] VITALS: BP 134/71
== END 2020-12-24 18:23 | disposition home or self-care (01) | DRG 417 ==
LOC: ER 03:59 → TRANSITION 11:23 → MED 12-19 13:06
PROVIDERS: ADMIT Student in an Organized Health Care Education/Training Program; ATTEND Nurse Practitioner Acute Care
PROC: 0FT44ZZ Resection of Gallbladder, Percutaneous Endoscopic Approach (ICD-10-PCS; principal; 2020-12-19)
PROC: 0DNU4ZZ Release Omentum, Percutaneous Endoscopic Approach (ICD-10-PCS; 2020-12-19)
DX: K80.13 Calculus of gallbladder with acute and chronic cholecystitis with obstruction (principal); N17.0 Acute kidney failure with tubular necrosis; E87.1 Hypo-osmolality and hyponatremia; K82.1 Hydrops of gallbladder; E87.6 Hypokalemia; D64.9 Anemia, unspecified; K57.30 Diverticulosis of large intestine without perforation or abscess without bleeding; K66.0 Peritoneal adhesions (postprocedural) (postinfection); M19.90 Unspecified osteoarthritis, unspecified site; Z79.51 Long term (current) use of inhaled steroids; Z93.3 Colostomy status; Z79.891 Long term (current) use of opiate analgesic; Z98.890 Other specified postprocedural states; Y92.9 Unspecified place or not applicable; T39.395A Adverse effect of other nonsteroidal anti-inflammatory drugs [NSAID], initial encounter; G89.4 Chronic pain syndrome; J45.909 Unspecified asthma, uncomplicated; M46.1 Sacroiliitis, not elsewhere classified
CPT/HCPCS: 36415; 71045-TC; 74018; 74181-TC; 76705-TC; 78226; 80048-TC; 80053-TC; 80061-TC; 80076-TC; 81001; 83690-TC; 83735-TC; 84100-TC; 84443-TC; 85025-TC; 85610-TC; 85730-TC; 86850-TC; 87040-TC; 87081-TC; 88305-TC; A6253; A9537; C9113; C9803; G0378; J0330; J1100; J1170; J1885; J2060; J2270; J2405; J2543; J2704; J2765; J3010; J3430; J3475; J3490; J7030; J7042; J7050; J7060; J7120; Q9963; Q9967